=== PATIENT | female | born 1950 | race Caucasian/White ===

== ENCOUNTER → 2017-03-18 | Outpatient (CLI) | payer MEDICARE, OTHER | LOC: MW.CHFP 07:40 | PROVIDERS: ATTEND Emergency Medicine | DX: E03.9 Hypothyroidism, unspecified (principal) | CPT/HCPCS: 36415; 84443 ==

== ENCOUNTER 2019-05-26 12:00 | Emergency (ER) | payer MEDICARE, OTHER ==
--- NOTE | 2019-05-26 12:07 | EDM.PDOC ---
ED HPI GENERAL MEDICAL PROBLEM - General Stated Complaint: SENT FROM CLINIC Time Seen by Provider: 05/26/19 12:01 - History of Present Illness INITIAL COMMENTS - FREE TEXT/NARRATIVE: HISTORY AND PHYSICAL: History of present illness: Patient is a 68-year-old white female presents status post fall when she tripped over a defective Mireya mowing the lawn she injured her left shoulder and did strike her head there was no loss consciousness patient is on aspirin daily she denies nausea vomiting visual disturbance denies any chest pain dizziness or other complaints. Patient's tetanus status is up-to-date Review of systems: As per history of present illness and below otherwise all systems reviewed and negative. Past medical history: As per history of present illness and as reviewed below otherwise noncontributory. Surgical history: As per history of present illness and as reviewed below otherwise noncontributory. Social history: No reported history of drug or alcohol abuse. Family history: As per history of present illness and as reviewed below otherwise noncontributory. Physical exam: HEENT: Atraumatic, normocephalic, pupils reactive, negative for conjunctival pallor or scleral icterus, mucous membranes moist, throat clear, neck supple, nontender, trachea midline. Lungs: Clear to auscultation, breath sounds equal bilaterally, chest nontender. Heart: S1S2, regular, negative for clicks, rubs, or JVD. Abdomen: Soft, nondistended, nontender. Negative for masses or hepatosplenomegaly. Negative for costovertebral tenderness. Pelvis: Stable nontender. Genitourinary: Deferred. Rectal: Deferred. Extremities: Patient has abrasion noted to her anterior shoulder on the left there is no crepitation no gross deformity she has slightly limited range of motion secondary to discomfort neurovascular exam is unremarkable Neuro: Awake, alert, oriented. Cranial nerves II through XII unremarkable. Cerebellum unremarkable. Motor and sensory unremarkable throughout. Exam nonfocal. Diagnostics: EKG CT brain x-ray left shoulder Therapeutics: None Impression: #1 observation status post fall #2 head trauma #3 left shoulder injury with abrasion Definitive disposition and diagnosis as appropriate pending reevaluation and review of above. - Related Data Allergies Allergy/AdvReac Type Severity Reaction Status Date / Time cephalexin monohydrate Allergy Hives Verified 05/26/19 12:14 [From Rollerscoot] Home Meds: Home Meds Levothyroxine Sodium [Synthroid] 25 mcg PO ACBREAKFAST 09/03/15 [History] Multivitamin with Minerals [Multiple Vitamin] 1 tab PO DAILY 09/03/15 [History] PARoxetine [Paxil] 20 mg PO DAILY 09/03/15 [History] Aspirin 81 mg PO DAILY 05/26/19 [History] Past Medical History Other Cardiovascular History: Mitral valve prolapse ED ROS GENERAL - Review of Systems Review Of Systems: ROS reveals no pertinent complaints other than HPI. ED EXAM, GENERAL - Physical Exam Exam: See Below (See dictation) Course - Vital Signs Last Recorded V/S: Last Vital Signs Temp 36.7 C 05/26/19 12:01 Pulse 62 05/26/19 12:01 Resp 16 05/26/19 12:01 BP 110/59 L 05/26/19 12:01 Pulse Ox 97 05/26/19 12:01 - Orders/Labs/Meds Orders: Active Orders 24 hr Category Date Time Status EKG 12 Lead [EKG Documentation Completion] [RC] STAT Care 05/26/19 12:15 Active Head wo Cont [CT] Stat Exams 05/26/19 12:15 Taken Departure - Departure Time of Disposition: 13:06 Disposition: Home, Self-Care 01 Condition: Good Clinical Impression: Fall, Head injury, Encounter for medical screening examination, Shoulder injury - Discharge Information Additional Instructions: The following information is given to patients seen in the emergency department who are being discharged to home. This information is to outline your options for follow-up care. We provide all patients seen in our emergency department with a follow-up referral. The need for follow-up, as well as the timing and circumstances, are variable depending upon the specifics of your emergency department visit. If you don't have a primary care physician on staff, we will provide you with a referral. We always advise you to contact your personal physician following an emergency department visit to inform them of the circumstance of the visit and for follow-up with them and/or the need for any referrals to a consulting specialist. The emergency department will also refer you to a specialist when appropriate. This referral assures that you have the opportunity for followup care with a specialist. All of these measure are taken in an effort to provide you with optimal care, which includes your followup. Under all circumstances we always encourage you to contact your private physician who remains a resource for coordinating your care. When calling for followup care, please make the office aware that this follow-up is from your recent emergency room visit. If for any reason you are refused follow-up, please contact the [facility] emergency department at and asked to speak to the emergency department charge nurse. Tylenol as directed sling as directed follow-up primary medical doctor return as needed as discussed - My Orders Last 24 Hours: My Active Orders 05/26/19 12:15 EKG 12 Lead [EKG Documentation Completion] [RC] STAT Head wo Cont [CT] Stat - Assessment/Plan Last 24 Hours: My Active Orders 05/26/19 12:15 EKG 12 Lead [EKG Documentation Completion] [RC] STAT Head wo Cont [CT] Stat
[2019-05-26 12:39] VITALS: BP 110/59
--- NOTE | 2019-05-26 12:59 | CR ---
HISTORY: Fall. Left shoulder pain. COMPARISON: None. FINDINGS: The joint spaces are preserved. No evidence for acute fracture or dislocation. Dictated by Miley Gan MD @ May 26 2019 12:58PM Signed by Dr. Miley Gan @ May 26 2019 12:58PM
--- NOTE | 2019-05-26 13:10 | CT ---
HISTORY: Fall. Headache. COMPARISON: 09/03/2015. TECHNIQUE: Noncontrast axial images were obtained through the brain. FINDINGS: Yousif-white matter differentiation is preserved. No evidence for acute intracranial hemorrhage or infarction. No midline shift or mass effect. Ventricles are nondilated and symmetric. No abnormal intra or extra-axial fluid collection. Visualized paranasal sinuses and mastoid air cells are clear. The bony calvaria are intact. IMPRESSION: No acute intracranial pathology. Please note that all CT scans at this facility use dose modulation, iterative reconstruction, and/or weight-based dosing when appropriate to reduce radiation dose to as low as reasonably achievable. Dictated by Miley Gan MD @ May 26 2019 1:06PM Signed by Dr. Miley Gan @ May 26 2019 1:09PM
== END 2019-05-26 13:35 | disposition home or self-care (01) ==
LOC: MW.ED 12:00
DX: S40.212A Abrasion of left shoulder, initial encounter (principal); S09.90XA Unspecified injury of head, initial encounter; Z88.6 Allergy status to analgesic agent; Z88.1 Allergy status to other antibiotic agents; Z79.899 Other long term (current) drug therapy; Z79.82 Long term (current) use of aspirin; W18.09XA Striking against other object with subsequent fall, initial encounter
CPT/HCPCS: 70450; 70450-26; 73030-26-LT; 73030-LT; 93005; 99284-25

== ENCOUNTER 2020-07-29 10:23 | Emergency (ER) | payer MEDICARE, OTHER ==
[2020-07-29] MEDS ORDERED: Sodium Chloride 0.9% 2.5 ML Syringe FLUSH PRN (10:56)
[2020-07-29] MEDS ORDERED: Sodium Chloride 0.9% 10 ML Syringe FLUSH PRN (10:56)
--- NOTE | 2020-07-29 11:00 | EDM.PDOC ---
ED HPI GENERAL MEDICAL PROBLEM - General Chief Complaint: Cardiovascular Problem Stated Complaint: FAINT DIZZY SHAKY Time Seen by Provider: 07/29/20 10:25 - History of Present Illness INITIAL COMMENTS - FREE TEXT/NARRATIVE: History of present illness: Patient presents with generalized weakness tremulousness near syncope cough in the morning since . She denies any vomiting but she has had some nausea no diarrhea there is not been any fever or chills no sore throat runny nose she coughs mostly in the morning when she wakes up in the cough makes her nauseous she denies any chest pain or shortness of breath no leg pain or leg swelling no rashes no dysuria nothing makes it better or worse Review of systems: As per history of present illness and below otherwise all systems reviewed and negative. Past medical history: As per history of present illness and as reviewed below otherwise noncontributory. Surgical history: As per history of present illness and as reviewed below otherwise noncontributory. Social history: No reported history of drug or alcohol abuse. Family history: As per history of present illness and as reviewed below otherwise noncontributory. Physical exam: HEENT: Atraumatic, normocephalic, pupils reactive, negative for conjunctival pallor or scleral icterus, mucous membranes moist, throat clear, neck supple, nontender, trachea midline. Lungs: Clear to auscultation, breath sounds equal bilaterally, chest nontender. Heart: S1S2, regular, negative for clicks, rubs, or JVD. Abdomen: Soft, nondistended, nontender. Negative for masses or hepatosplenomegaly. Negative for costovertebral tenderness. Pelvis: Stable nontender. Genitourinary: Deferred. Rectal: Deferred. Extremities: Atraumatic, negative for cords or calf pain. Neurovascular unremarkable. Neuro: Awake, alert, oriented. Cranial nerves II through XII unremarkable. Cerebellum unremarkable. Motor and sensory unremarkable throughout. Exam nonfocal. Diagnostics: [] Therapeutics: [] Impression: Near syncope generalized weakness cough [] Plan: Syncope work-up COVID testing reassess [] Definitive disposition and diagnosis as appropriate pending reevaluation and review of above. - Related Data Allergies Allergy/AdvReac Type Severity Reaction Status Date / Time cephalexin monohydrate Allergy Hives Verified 07/29/20 10:36 [From Keflex] Home Meds: Home Meds Levothyroxine Sodium [Synthroid] 25 mcg PO ACBREAKFAST 09/03/15 [History] Multivitamin with Minerals [Multiple Vitamin] 1 tab PO DAILY 09/03/15 [History] PARoxetine [Paxil] 20 mg PO DAILY 09/03/15 [History] Aspirin 81 mg PO DAILY 05/26/19 [History] Calcium Carbonate/Vitamin D3 [Calcium 250+D] 1 each PO DAILY 07/29/20 [History] Midodrine mg PO ASDIRECTED 07/29/20 [History] Past Medical History Cardiovascular History: Reports: Hypertension Other Cardiovascular History: Mitral valve prolapse Musculoskeletal History: Reports: Other (See Below) Other Musculoskeletal History: TMJ Psychiatric History: Reports: Depression Endocrine/Metabolic History: Reports: Hyperthyroidism - Infectious Disease History Infectious Disease History: Reports: Chicken Pox, Measles, Mumps - Past Surgical History HEENT Surgical History: Reports: Cataract Surgery, Eye Surgery, LASIK Female Surgical History: Reports: Breast Biopsy, Hysterectomy Social & Family History - Family History Family Medical History: Noncontributory - Tobacco Use Smoking Status *Q: Never Smoker - Caffeine Use Caffeine Use: Reports: Coffee, Soda - Recreational Drug Use Recreational Drug Use: No ED ROS GENERAL - Review of Systems Review Of Systems: See Below ED EXAM, GENERAL - Physical Exam Exam: See Below EKG INTERPRETATION EKG Interpretation Comments: EKG is normal sinus rhythm rate of 76 bpm right axis normal intervals no specific ischemia there are some nonspecific ST-T changes read and interpreted by me Course - Vital Signs Text/Narrative:: Patient's lab work is fairly unremarkable with the exception that she is positive for COVID a one-view portable chest was obtained as read interpreted by me there is no acute cardiopulmonary pathology evident. Her vital signs are stable she will be discharged home with instructions to self isolate for 2 weeks. Return to the ED for respiratory distress Last Recorded V/S: Last Vital Signs Temp 37.9 C 07/29/20 10:37 Pulse 74 07/29/20 10:37 Resp 18 07/29/20 10:37 BP 104/46 L 07/29/20 10:37 Pulse Ox 98 07/29/20 10:37 - Orders/Labs/Meds Orders: Active Orders 24 hr Category Date Time Status EKG Documentation Completion [RC] STAT Care 07/29/20 10:56 Active CORONAVIRUS COVID-19 PCR PHL Stat Lab 07/29/20 11:28 Received Sodium Chloride 0.9% [Saline Flush] Med 07/29/20 10:56 Active 10 ml FLUSH ASDIRECTED PRN Sodium Chloride 0.9% [Saline Flush] Med 07/29/20 10:56 Active 2.5 ml FLUSH ASDIRECTED PRN Saline Lock Insert [OM.PC] Stat Oth 07/29/20 10:56 Ordered Medication Orders Sodium Chloride (Saline Flush) 10 ml FLUSH ASDIRECTED PRN PRN Reason: Keep Vein Open Sodium Chloride (Saline Flush) 2.5 ml FLUSH ASDIRECTED PRN PRN Reason: Keep Vein Open Labs: Laboratory Tests 07/29/20 07/29/20 07/29/20 Range/Units 11:22 11:22 11:28 WBC 3.17 L (4.0-11.0) K/uL RBC 4.30 (4.30-5.90) M/uL Hgb 12.9 (12.0-16.0) g/dL Hct 40.3 (36.0-46.0) % MCV 93.7 (80.0-98.0) fL MCH 30.0 (27.0-32.0) pg MCHC 32.0 (31.0-37.0) g/dL RDW Std Deviation 46.2 (28.0-62.0) fl RDW Coeff of Desiree 13 (11.0-15.0) % Plt Count 160 (150-400) K/uL MPV 9.60 (7.40-12.00) fL Neut % (Auto) 58.7 (48.0-80.0) % Lymph % (Auto) 31.9 (16.0-40.0) % [place] % (Auto) 8.8 (0.0-15.0) % Eos % (Auto) 0.3 (0.0-7.0) % Baso % (Auto) 0.3 (0.0-1.5) % Neut # (Auto) 1.9 (1.4-5.7) K/uL Lymph # (Auto) 1.0 (0.6-2.4) K/uL [place] # (Auto) 0.3 (0.0-0.8) K/uL Eos # (Auto) 0.0 (0.0-0.7) K/uL Baso # (Auto) 0.0 (0.0-0.1) K/uL Nucleated RBC % 0.0 /100WBC Nucleated RBCs # 0 K/uL Sodium 139 (136-145) mmol/L Potassium 3.7 (3.5-5.1) mmol/L Chloride 102 (98-107) mmol/L Carbon Dioxide 30.6 (21.0-32.0) mmol/L BUN 19 H (7.0-18.0) mg/dL Creatinine 1.1 H (0.6-1.0) mg/dL Est Cr Clr Drug Dosing 42.86 mL/min Estimated GFR (MDRD) 49.2 ml/min Glucose 93 (74-106) mg/dL Calcium 8.9 (8.5-10.1) mg/dL Total Bilirubin 0.2 (0.2-1.0) mg/dL AST 43 H (15-37) IU/L ALT 39 (14-63) IU/L Alkaline Phosphatase 56 (46-116) U/L Troponin I < 0.050 (0.000-0.056) ng/mL Total Protein 7.8 (6.4-8.2) g/dL Albumin 3.8 (3.4-5.0) g/dL Globulin 4.0 (2.6-4.0) g/dL Albumin/Globulin Ratio 0.9 (0.9-1.6) Urine Color Urine Appearance Urine pH (5.0-8.0) Ur Specific [place] (1.001-1.035) Urine Protein (NEGATIVE) mg/dL Urine Glucose (UA) (NEGATIVE) mg/dL Urine Ketones (NEGATIVE) mg/dL Urine Occult Blood (NEGATIVE) Urine Nitrite (NEGATIVE) Urine Bilirubin (NEGATIVE) Urine Urobilinogen (<2.0) EU/dL Ur Leukocyte Esterase (NEGATIVE) Urine RBC (0-2/HPF) Urine WBC (0-5/HPF) Ur Epithelial Cells (NONE-FEW) Urine Bacteria (NEGATIVE) SARS CoV-2 RNA Rapid REID POSITIVE H (NEGATIVE) 07/29/20 Range/Units 12:37 WBC (4.0-11.0) K/uL RBC (4.30-5.90) M/uL Hgb (12.0-16.0) g/dL Hct (36.0-46.0) % MCV (80.0-98.0) fL MCH (27.0-32.0) pg MCHC (31.0-37.0) g/dL RDW Std Deviation (28.0-62.0) fl RDW Coeff of Desiree (11.0-15.0) % Plt Count (150-400) K/uL MPV (7.40-12.00) fL Neut % (Auto) (48.0-80.0) % Lymph % (Auto) (16.0-40.0) % [place] % (Auto) (0.0-15.0) % Eos % (Auto) (0.0-7.0) % Baso % (Auto) (0.0-1.5) % Neut # (Auto) (1.4-5.7) K/uL Lymph # (Auto) (0.6-2.4) K/uL [place] # (Auto) (0.0-0.8) K/uL Eos # (Auto) (0.0-0.7) K/uL Baso # (Auto) (0.0-0.1) K/uL Nucleated RBC % /100WBC Nucleated RBCs # K/uL Sodium (136-145) mmol/L Potassium (3.5-5.1) mmol/L Chloride (98-107) mmol/L Carbon Dioxide (21.0-32.0) mmol/L BUN (7.0-18.0) mg/dL Creatinine (0.6-1.0) mg/dL Est Cr Clr Drug Dosing mL/min Estimated GFR (MDRD) ml/min Glucose (74-106) mg/dL Calcium (8.5-10.1) mg/dL Total Bilirubin (0.2-1.0) mg/dL AST (15-37) IU/L ALT (14-63) IU/L Alkaline Phosphatase (46-116) U/L Troponin I (0.000-0.056) ng/mL Total Protein (6.4-8.2) g/dL Albumin (3.4-5.0) g/dL Globulin (2.6-4.0) g/dL Albumin/Globulin Ratio (0.9-1.6) Urine Color YELLOW Urine Appearance CLEAR Urine pH 6.0 (5.0-8.0) Ur Specific [place] 1.025 (1.001-1.035) Urine Protein TRACE H (NEGATIVE) mg/dL Urine Glucose (UA) NEGATIVE (NEGATIVE) mg/dL Urine Ketones NEGATIVE (NEGATIVE) mg/dL Urine Occult Blood NEGATIVE (NEGATIVE) Urine Nitrite NEGATIVE (NEGATIVE) Urine Bilirubin NEGATIVE (NEGATIVE) Urine Urobilinogen 0.2 (<2.0) EU/dL Ur Leukocyte Esterase NEGATIVE (NEGATIVE) Urine RBC 0-1 (0-2/HPF) Urine WBC 0-2 (0-5/HPF) Ur Epithelial Cells FEW (NONE-FEW) Urine Bacteria FEW (NEGATIVE) SARS CoV-2 RNA Rapid REID (NEGATIVE) Meds: Medications Generic Name Dose Route Start Last Admin Trade Name Freq PRN Reason Stop Dose Admin Sodium Chloride 10 ml 07/29/20 10:56 Saline Flush FLUSH ASDIRECTED PRN Keep Vein Open Sodium Chloride 2.5 ml 07/29/20 10:56 Saline Flush FLUSH ASDIRECTED PRN Keep Vein Open Departure - Departure Time of Disposition: 12:55 Disposition: Home, Self-Care 01 Condition: Good Clinical Impression: COVID-19 Instructions: COVID-19 Frequently Asked Questions, Prevent the Spread of COVID- 19 if You Are Sick - [facility] Referrals: Vj Julian MD [Primary Care Provider] - Forms: ED Department Discharge Additional Instructions: The following information is given to patients seen in the emergency department who are being discharged to home. This information is to outline your options for follow-up care. We provide all patients seen in our emergency department with a follow-up referral. The need for follow-up, as well as the timing and circumstances, are variable depending upon the specifics of your emergency department visit. If you don't have a primary care physician on staff, we will provide you with a referral. We always advise you to contact your personal physician following an emergency department visit to inform them of the circumstance of the visit and for follow-up with them and/or the need for any referrals to a consulting specialist. The emergency department will also refer you to a specialist when appropriate. This referral assures that you have the opportunity for follow-up care with a specialist. All of these measure are taken in an effort to provide you with optimal care, which includes your follow-up. Under all circumstances we always encourage you to contact your private physician who remains a resource for coordinating your care. When calling for follow-up care, please make the office aware that this follow-up is from your recent emergency room visit. If for any reason you are refused follow-up, please contact the [facility] Emergency Department at and asked to speak to the emergency department charge nurse. Sepsis Event Note (ED) - Evaluation Sepsis Screening Result: No Definite Risk - Focused Exam Vital Signs: Vital Signs Temp Pulse Resp BP Pulse Ox 07/29/20 10:37 37.9 C 74 18 104/46 L 98 - My Orders Last 24 Hours: My Active Orders 07/29/20 10:56 EKG Documentation Completion [RC] STAT Sodium Chloride 0.9% [Saline Flush] 10 ml FLUSH ASDIRECTED PRN Sodium Chloride 0.9% [Saline Flush] 2.5 ml FLUSH ASDIRECTED PRN Saline Lock Insert [OM.PC] Stat 07/29/20 11:28 CORONAVIRUS COVID-19 PCR PHL Stat - Assessment/Plan Last 24 Hours: My Active Orders 07/29/20 10:56 EKG Documentation Completion [RC] STAT Sodium Chloride 0.9% [Saline Flush] 10 ml FLUSH ASDIRECTED PRN Sodium Chloride 0.9% [Saline Flush] 2.5 ml FLUSH ASDIRECTED PRN Saline Lock Insert [OM.PC] Stat 07/29/20 11:28 CORONAVIRUS COVID-19 PCR PHL Stat
--- NOTE | 2020-07-29 11:36 | CR ---
Chest: Portable view of the chest was obtained. Comparison: No prior chest imaging is available. Heart size and mediastinum are within normal limits for portable technique. Lungs are clear with no acute parenchymal change. Scoliosis is noted within the spine. No acute osseous finding is appreciated. Impression: 1. Scoliosis. 2. Nothing acute is identified on portable chest x-ray. Diagnostic code #2 This report was dictated in MDT
[2020-07-29 12:06] LABS: BLOOD UREA NITROGEN,BUN 19 mg/dL (7.0-18.0); CARBON DIOXIDE,CO2 30.6 mmol/L (21.0-32.0); CHLORIDE,CL 102 mmol/L (98-107); GLUCOSE RANDOM 93 mg/dL (74-106); POTASSIUM,K 3.7 mmol/L (3.5-5.1); SODIUM,NA 139 mmol/L (136-145)
[2020-07-29 13:09] VITALS: BP 103/48; PULSE 72
== END 2020-07-29 13:07 | disposition home or self-care (01) ==
LOC: MW.ED 10:23
DX: U07.1 COVID-19 (principal); R55 Syncope and collapse; I10 Essential (primary) hypertension; F32.9 Major depressive disorder, single episode, unspecified; Z88.1 Allergy status to other antibiotic agents; Z79.82 Long term (current) use of aspirin; Z79.899 Other long term (current) drug therapy; Z90.710 Acquired absence of both cervix and uterus
CPT/HCPCS: 36415; 71045; 80053; 81001; 84484; 85025; 93005; 99285; U0002; 99283

== ENCOUNTER 2020-08-02 11:54 | Inpatient (IN) | payer MEDICARE, OTHER ==
[2020-08-02] MEDS ORDERED: Ondansetron 4 MG/2 ML SDV ONE (14:09)
[2020-08-02] MEDS ORDERED: Ketorolac 30 MG/ML SDV ONE (14:09)
--- NOTE | 2020-08-02 14:40 | EDM.PDOC ---
ED HPI GENERAL MEDICAL PROBLEM - General Chief Complaint: General Stated Complaint: PASSING OUT COVID Time Seen by Provider: 08/02/20 12:26 Source of Information: Reports: Patient History Limitations: Reports: No Limitations - History of Present Illness INITIAL COMMENTS - FREE TEXT/NARRATIVE: HISTORY AND PHYSICAL: History of present illness: Patient is a 69-year-old female who was diagnosed with COVID-19 on 07/29/2020. At that time she was having respiratory symptoms and fevers. Since being discharged home she says she feels increasingly weak, generally unwell, cough and chest pain. Over the past 24 hours she has had 3 separate syncopal episodes where he feels like she is very weak and has to let herself to the ground and has passed out. She has not been able to eat or drink much as she has had nausea, diarrhea and decreased appetite. Patient denies any headache, change in vision, abdominal pain, vomiting, constipation or dysuria. Has not noted any blood in urine or stool. Patient has been eating and drinking appropriately. Review of systems: As per history of present illness and below otherwise all systems reviewed and negative. Past medical history: As per history of present illness and as reviewed below otherwise noncontributory. Surgical history: As per history of present illness and as reviewed below otherwise noncontributory. Social history: See social history for further information Family history: As per history of present illness and as reviewed below otherwise noncontributory. Physical exam: General: Well developed and well nourished 69-year-old female. Alert and orientated x 3. Nontoxic in appearance and in no acute distress. Vital signs are stable and have been reviewed by me. Nursing notes were reviewed. HEENT: Atraumatic, normocephalic, pupils equal and reactive bilaterally, negative for conjunctival pallor or scleral icterus, mucous membranes dry, TMs normal bilaterally, throat clear, neck supple, nontender, trachea midline. No drooling or trismus noted. No meningeal signs. No hot potato voice noted. Lungs: Clear to auscultation, breath sounds equal bilaterally, chest nontender. Normal work of breathing, no accessory muscles used. Heart: S1S2, regular rate and rhythm without overt murmur Abdomen: Soft, nondistended, nontender. Negative for masses or hepatosplenomegaly. Negative for costovertebral tenderness. Skin: Intact, warm, dry. No lesions or rashes noted. Hematologic: No petechiae or purpra. Mucosa appropriate color and normal nail bed color and refill. Extremities: Atraumatic, moves all extremities per self without difficulty or deficits, negative for cords or calf pain. Neurovascular unremarkable. Neuro: Awake, alert, oriented. Cranial nerves II through XII unremarkable. Cerebellum unremarkable. Motor and sensory unremarkable throughout. Exam nonfocal. Psychiatric: Mood and affect are appropriate. Normal thought process. Answering questions appropriately. Notes: Chest x-ray shows probable viral bronchitis with possible early area of pneumonia within the right base. EKG shows a sinus rhythm with a rate of 80. Patient does have a slightly elevated d-dimer. Due to the patient's syncopal events, positive COVID history and her generalized weakness I do feel she warrants an observation admission. Her vital signs have been stable and oxygen saturation has been above 95% while on room air. She has not required any oxygen therapy while here. Dr. Fuchs was consulted and he is agreeable that this patient can stay for observation. Diagnostics: CBC, CMP, troponin, EKG, d-dimer, chest x-ray Therapeutics: IV fluid, Zofran, Toradol Impression: Syncope COVID-19 Plan: Observation admission Definitive disposition and diagnosis as appropriate pending reevaluation and review of above. Chest Pain Score (Numeric/FACES): 5 - Related Data Allergies Allergy/AdvReac Type Severity Reaction Status Date / Time cephalexin monohydrate Allergy Hives Verified 07/29/20 10:36 [From [employer]] Home Meds: Home Meds Levothyroxine Sodium [Synthroid] 25 mcg PO ACBREAKFAST 09/03/15 [History] Multivitamin with Minerals [Multiple Vitamin] 1 tab PO DAILY 09/03/15 [History] PARoxetine [Paxil] 20 mg PO DAILY 09/03/15 [History] Aspirin 81 mg PO DAILY 05/26/19 [History] Calcium Carbonate/Vitamin D3 [Calcium 250+D] 1 each PO DAILY 07/29/20 [History] Midodrine mg PO ASDIRECTED 07/29/20 [History] Past Medical History Cardiovascular History: Reports: Hypertension Other Cardiovascular History: Mitral valve prolapse Musculoskeletal History: Reports: Other (See Below) Other Musculoskeletal History: TMJ Psychiatric History: Reports: Depression Endocrine/Metabolic History: Reports: Hyperthyroidism - Infectious Disease History Infectious Disease History: Reports: Chicken Pox, Influenza, Measles, Mumps, Novel Coronavirus - Past Surgical History HEENT Surgical History: Reports: Cataract Surgery, Eye Surgery, LASIK Female Surgical History: Reports: Breast Biopsy, Hysterectomy Social & Family History - Family History Family Medical History: Noncontributory - Tobacco Use Smoking Status *Q: Never Smoker Second Hand Smoke Exposure: No - Caffeine Use Caffeine Use: Reports: None - Recreational Drug Use Recreational Drug Use: No ED ROS GENERAL - Review of Systems Review Of Systems: Comprehensive ROS is negative, except as noted in HPI. ED EXAM, GENERAL - Physical Exam Exam: See Below (See dictation) Course - Vital Signs Last Recorded V/S: Last Vital Signs Temp 96.3 F L 08/02/20 12:20 Pulse 70 08/02/20 16:49 Resp 18 08/02/20 12:20 BP 98/54 L 08/02/20 16:49 Pulse Ox 93 L 08/02/20 16:49 - Orders/Labs/Meds Orders: Active Orders 24 hr Category Date Time Status EKG Documentation Completion [RC] STAT Care 08/02/20 12:33 Active Medication Orders Aspirin (Aspirin) 81 mg PO DAILY [facility] Enoxaparin Sodium (Lovenox) 40 mg SUBCUT DAILY [facility] Last Admin: 08/02/20 19:57 Dose: 40 mg Documented by: RASHIDA Sodium Chloride (Normal Saline) 1,000 mls @ 125 mls/hr IV Q8H [facility] Last Admin: 08/02/20 19:58 Dose: 125 mls/hr Documented by: FLAVIOOMAS Levothyroxine Sodium (Levothyroxine) 25 mcg PO ACBREAKFAST [facility] Non-Formulary Medication (Midodrine) 2.5 mg PO ASDIRECTED [facility] Paroxetine HCl (Paxil) 20 mg PO DAILY [facility] Labs: Laboratory Tests 08/02/20 08/02/20 08/02/20 Range/Units 14:23 14:23 14:23 WBC 3.98 L (4.0-11.0) K/uL RBC 4.42 (4.30-5.90) M/uL Hgb 13.1 (12.0-16.0) g/dL Hct 40.4 (36.0-46.0) % MCV 91.4 (80.0-98.0) fL MCH 29.6 (27.0-32.0) pg MCHC 32.4 (31.0-37.0) g/dL RDW Std Deviation 44.5 (28.0-62.0) fl RDW Coeff of Desiree 13 (11.0-15.0) % Plt Count 176 (150-400) K/uL MPV 9.60 (7.40-12.00) fL Neut % (Auto) 72.8 (48.0-80.0) % Lymph % (Auto) 21.4 (16.0-40.0) % Mower % (Auto) 5.5 (0.0-15.0) % Eos % (Auto) 0.0 (0.0-7.0) % Baso % (Auto) 0.3 (0.0-1.5) % Neut # (Auto) 2.9 (1.4-5.7) K/uL Lymph # (Auto) 0.9 (0.6-2.4) K/uL Mower # (Auto) 0.2 (0.0-0.8) K/uL Eos # (Auto) 0.0 (0.0-0.7) K/uL Baso # (Auto) 0.0 (0.0-0.1) K/uL Nucleated RBC % 0.0 /100WBC Nucleated RBCs # 0 K/uL D-Dimer, Quantitative 0.55 H (0.0-0.50) mg/L FEU Sodium 135 L (136-145) mmol/L Potassium 3.6 (3.5-5.1) mmol/L Chloride 99 (98-107) mmol/L Carbon Dioxide 30.8 (21.0-32.0) mmol/L BUN 18 (7.0-18.0) mg/dL Creatinine 1.0 (0.6-1.0) mg/dL Est Cr Clr Drug Dosing 47.52 mL/min Estimated GFR (MDRD) 55.0 ml/min Glucose 113 H (74-106) mg/dL Calcium 8.4 L (8.5-10.1) mg/dL Total Bilirubin 0.2 (0.2-1.0) mg/dL AST 86 H (15-37) IU/L ALT 76 H (14-63) IU/L Alkaline Phosphatase 58 (46-116) U/L Troponin I < 0.050 (0.000-0.056) ng/mL Total Protein 7.8 (6.4-8.2) g/dL Albumin 3.6 (3.4-5.0) g/dL Globulin 4.2 H (2.6-4.0) g/dL Albumin/Globulin Ratio 0.9 (0.9-1.6) SARS-CoV-2 RNA (REID) (NEGATIVE) 08/02/20 Range/Units 15:00 WBC (4.0-11.0) K/uL RBC (4.30-5.90) M/uL Hgb (12.0-16.0) g/dL Hct (36.0-46.0) % MCV (80.0-98.0) fL MCH (27.0-32.0) pg MCHC (31.0-37.0) g/dL RDW Std Deviation (28.0-62.0) fl RDW Coeff of Desiree (11.0-15.0) % Plt Count (150-400) K/uL MPV (7.40-12.00) fL Neut % (Auto) (48.0-80.0) % Lymph % (Auto) (16.0-40.0) % Mower % (Auto) (0.0-15.0) % Eos % (Auto) (0.0-7.0) % Baso % (Auto) (0.0-1.5) % Neut # (Auto) (1.4-5.7) K/uL Lymph # (Auto) (0.6-2.4) K/uL Mower # (Auto) (0.0-0.8) K/uL Eos # (Auto) (0.0-0.7) K/uL Baso # (Auto) (0.0-0.1) K/uL Nucleated RBC % /100WBC Nucleated RBCs # K/uL D-Dimer, Quantitative (0.0-0.50) mg/L FEU Sodium (136-145) mmol/L Potassium (3.5-5.1) mmol/L Chloride (98-107) mmol/L Carbon Dioxide (21.0-32.0) mmol/L BUN (7.0-18.0) mg/dL Creatinine (0.6-1.0) mg/dL Est Cr Clr Drug Dosing mL/min Estimated GFR (MDRD) ml/min Glucose (74-106) mg/dL Calcium (8.5-10.1) mg/dL Total Bilirubin (0.2-1.0) mg/dL AST (15-37) IU/L ALT (14-63) IU/L Alkaline Phosphatase (46-116) U/L Troponin I (0.000-0.056) ng/mL Total Protein (6.4-8.2) g/dL Albumin (3.4-5.0) g/dL Globulin (2.6-4.0) g/dL Albumin/Globulin Ratio (0.9-1.6) SARS-CoV-2 RNA (REID) POSITIVE H (NEGATIVE) Meds: Medications Generic Name Dose Route Start Last Admin Trade Name Freq PRN Reason Stop Dose Admin Aspirin 81 mg 08/03/20 09:00 Aspirin PO DAILY [facility] Enoxaparin Sodium 40 mg 08/02/20 19:15 08/02/20 19:57 Lovenox SUBCUT 40 mg DAILY [facility] Administration Sodium Chloride 1,000 mls @ 125 mls/hr 08/02/20 19:15 08/02/20 19:58 Normal Saline IV 125 mls/hr Q8H [facility] Administration Levothyroxine Sodium 25 mcg 08/03/20 07:30 Levothyroxine PO ACBREAKFAST [facility] Non-Formulary Medication 2.5 mg 08/02/20 18:45 Midodrine PO ASDIRECTED [facility] Paroxetine HCl 20 mg 08/03/20 09:00 Paxil PO DAILY [facility] Discontinued Medications Generic Name Dose Route Start Last Admin Trade Name Freq PRN Reason Stop Dose Admin Enoxaparin Sodium 40 mg 08/02/20 16:00 Lovenox SUBCUT DAILY [facility] Sodium Chloride 1,000 mls @ 125 mls/hr 08/02/20 15:30 08/02/20 14:29 Normal Saline IV 125 mls/hr Q8H [facility] Administration Ketorolac Tromethamine Confirm 08/02/20 14:09 08/02/20 17:14 Toradol Administered 08/02/20 14:10 Not Given Dose 30 mg .ROUTE .STK-MED ONE Ketorolac Tromethamine 30 mg 08/02/20 17:13 08/02/20 14:23 Toradol IVPUSH 08/02/20 17:14 30 mg ONETIME ONE Administration Ondansetron HCl Confirm 08/02/20 14:09 08/02/20 17:14 Zofran Administered 08/02/20 14:10 Not Given Dose 4 mg .ROUTE .STK-MED ONE Ondansetron HCl 4 mg 08/02/20 17:14 08/02/20 17:15 Zofran IVPUSH 08/02/20 17:15 4 mg ONETIME ONE Administration Departure - Departure Time of Disposition: 20:01 Disposition: Refer to Observation Clinical Impression: COVID-19 Syncope Qualifiers: Syncope type: unspecified Qualified Code(s): R55 - Syncope and collapse - Discharge Information Sepsis Event Note (ED) - Evaluation Sepsis Screening Result: No Definite Risk - Focused Exam Vital Signs: Vital Signs Temp Pulse Resp BP Pulse Ox 08/02/20 14:49 78 102/50 L 94 L 08/02/20 12:32 95 08/02/20 12:20 96.3 F L 91 18 112/59 L - My Orders Last 24 Hours: My Active Orders 08/02/20 12:33 EKG Documentation Completion [RC] STAT - Assessment/Plan Last 24 Hours: My Active Orders 08/02/20 12:33 EKG Documentation Completion [RC] STAT
--- NOTE | 2020-08-02 15:02 | PCM.HP.2 ---
H&P History of Present Illness - General Date of Service: 08/02/20 - History of Present Illness Initial Comments - Free Text/Narative: 69 yo female who tested positive for COVID four days ago. She had symptoms of nausea, vomiting, diarhea and fevers for two days prior to that. She reports she has not been able to keep anything down. She has passed out three times this week. She denies any chest pain, cough or shortness of breath. She does take midodrine for low blood pressures. Chest Pain Score (Numeric/FACES): 5 - Related Data Allergies/Adverse Reactions: Allergies Allergy/AdvReac Type Severity Reaction Status Date / Time cephalexin monohydrate Allergy Hives Verified 07/29/20 10:36 [From [employer]] Home Medications: Home Meds Levothyroxine Sodium [Synthroid] 25 mcg PO ACBREAKFAST 09/03/15 [History] Multivitamin with Minerals [Multiple Vitamin] 1 tab PO DAILY 09/03/15 [History] PARoxetine [Paxil] 20 mg PO DAILY 09/03/15 [History] Aspirin 81 mg PO DAILY 05/26/19 [History] Calcium Carbonate/Vitamin D3 [Calcium 250+D] 1 each PO DAILY 07/29/20 [History] Midodrine mg PO ASDIRECTED 07/29/20 [History] Past Medical History Cardiovascular History: Reports: Hypertension Other Cardiovascular History: Mitral valve prolapse Musculoskeletal History: Reports: Other (See Below) Other Musculoskeletal History: TMJ Psychiatric History: Reports: Depression Endocrine/Metabolic History: Reports: Hyperthyroidism - Infectious Disease History Infectious Disease History: Reports: Chicken Pox, Influenza, Measles, Mumps, Novel Coronavirus - Past Surgical History HEENT Surgical History: Reports: Cataract Surgery, Eye Surgery, LASIK Female Surgical History: Reports: Breast Biopsy, Hysterectomy Social & Family History - Family History Family Medical History: Noncontributory - Tobacco Use Smoking Status *Q: Never Smoker Second Hand Smoke Exposure: No - Caffeine Use Caffeine Use: Reports: None - Recreational Drug Use Recreational Drug Use: No H&P Review of Systems - Review of Systems: Review Of Systems: Comprehensive ROS is negative, except as noted in HPI. Exam - Exam Exam: See Below - Vital Signs Vital Signs: Last Vital Signs Temp 35.7 C L 08/02/20 12:20 Pulse 91 08/02/20 12:20 Resp 18 08/02/20 12:20 BP 112/59 L 08/02/20 12:20 Pulse Ox 95 08/02/20 12:32 Weight: 56.699 kg - Exam General: Alert, Oriented HEENT: Mucosa Moist & [place] Lungs: Clear to Auscultation, Normal Respiratory Effort Cardiovascular: Regular Rate, Regular Rhythm GI/Abdominal Exam: Normal Bowel Sounds, Soft, Non-Tender Extremities: Non-Tender, No Pedal Edema Skin: Warm, Dry, Intact Sepsis Event Note - Evaluation Sepsis Screening Result: No Definite Risk - Focused Exam Vital Signs: Vital Signs Temp Pulse Resp BP Pulse Ox 08/02/20 12:32 95 08/02/20 12:20 35.7 C L 91 18 112/59 L Problem List Initiated/Reviewed/Updated: Yes Orders Last 24hrs: Active Orders 24 hr Category Date Time Status EKG Documentation Completion [RC] STAT Care 08/02/20 12:33 Active Chest 1V Frontal [CR] Stat Exams 08/02/20 12:33 Ordered CBC WITH AUTO DIFF [HEME] Stat Lab 08/02/20 12:32 Ordered COMPREHENSIVE METABOLIC PN,CMP [CHEM] Stat Lab 08/02/20 12:33 Ordered DD [D-DIMER QUANTITATIVE] [COAG] Stat Lab 08/02/20 12:59 Ordered TROPONIN I [CHEM] Stat Lab 08/02/20 12:33 Ordered Assessment/Plan Comment:: 69 yo female admitted for dehydration due to COVID with GI symptoms. Patient is not hypoxic. We will treat supportively with IV fluids and antiemetics.
[2020-08-02] MEDS ORDERED: Sodium Chloride 0.9% 1,000 ML IV SCH (15:30)
[2020-08-02] MEDS ORDERED: Enoxaparin 40 MG/0.4 ML Syringe SUBCUT SCH (16:00)
--- NOTE | 2020-08-02 16:20 | CR ---
Chest: Portable view of the chest was obtained. Comparison: No prior study available at this time. Lung markings are increased most likely due to viral bronchitis. Slight parenchymal density within the right lung base possibly due to early alveolar pneumonia. Lungs otherwise are clear. Heart size and mediastinum are normal. Bony structures are unremarkable. Impression: 1. Probable viral bronchitis with possible early area of pneumonia within the right base. Diagnostic code #3 Study was dictated in MDT MTDD
[2020-08-02 16:26] LABS: BLOOD UREA NITROGEN,BUN 18 mg/dL (7.0-18.0); CARBON DIOXIDE,CO2 30.8 mmol/L (21.0-32.0); CHLORIDE,CL 99 mmol/L (98-107); GLUCOSE RANDOM 113 mg/dL (74-106); POTASSIUM,K 3.6 mmol/L (3.5-5.1); SODIUM,NA 135 mmol/L (136-145)
[2020-08-02] MEDS ORDERED: Ketorolac 30 MG/ML SDV IVPUSH ONE (17:13)
[2020-08-02] MEDS ORDERED: Ondansetron 4 MG/2 ML SDV IVPUSH ONE (17:14)
[2020-08-02] MEDS: Enoxaparin 40 MG/0.4 ML Syringe SUBCUT SCH (19:57)
[2020-08-02] MEDS: Sodium Chloride 0.9% 1,000 ML IV SCH (19:58)
[2020-08-02] MEDS ORDERED: Sodium Chloride 0.9% 500 ML IV SCH (21:30)
[2020-08-02] MEDS: Acetaminophen 325 MG Tab PO PRN (21:46)
[2020-08-03] MEDS ORDERED: Sodium Chloride 0.9% 500 ML IV SCH (00:15)
[2020-08-03] MEDS: Sodium Chloride 0.9% 1,000 ML IV SCH ×2 (04:22→12:04)
[2020-08-03 06:39] LABS: BLOOD UREA NITROGEN,BUN 16 mg/dL (7.0-18.0); CARBON DIOXIDE,CO2 26.5 mmol/L (21.0-32.0); CHLORIDE,CL 107 mmol/L (98-107); GLUCOSE RANDOM 91 mg/dL (74-106); POTASSIUM,K 4.4 mmol/L (3.5-5.1); SODIUM,NA 140 mmol/L (136-145)
[2020-08-03] MEDS ORDERED: Midodrine 5 MG Tab PO SCH (09:00)
[2020-08-03] MEDS: Aspirin 81 MG Tab.Chew PO SCH (09:02)
[2020-08-03] MEDS: PARoxetine 20 MG Tab PO SCH (09:03)
[2020-08-03] MEDS: Levothyroxine 112 MCG Tab PO SCH (09:03)
[2020-08-03] MEDS: Acetaminophen 325 MG Tab PO PRN ×3 (09:04→20:59)
[2020-08-03] MEDS: Enoxaparin 40 MG/0.4 ML Syringe SUBCUT SCH (09:05)
[2020-08-03] MEDS: Midodrine 5 MG Tab PO SCH (09:11)
--- NOTE | 2020-08-03 15:38 | PCM.PN ---
- General Info Date of Service: 08/03/20 - Review of Systems Systems Review Comment:: feeling better, nausea has improved - Patient Data Vitals - Most Recent: Last Vital Signs Temp 37.3 C 08/03/20 11:57 Pulse 63 08/03/20 11:57 Resp 16 08/03/20 11:57 BP 101/53 L 08/03/20 11:57 Pulse Ox 92 L 08/03/20 11:57 Weight - Most Recent: 56.699 kg I&O - Last 24 Hours: Intake & Output 08/03/20 08/03/20 08/03/20 06:59 14:59 22:59 Intake Total 2366 Output Total 650 Balance 1716 Lab Results Last 24 Hours: Laboratory Results - last 24 hr 08/02/20 08/02/20 08/02/20 Range/Units 14:23 14:23 14:23 WBC 3.98 L (4.0-11.0) K/uL RBC 4.42 (4.30-5.90) M/uL Hgb 13.1 (12.0-16.0) g/dL Hct 40.4 (36.0-46.0) % MCV 91.4 (80.0-98.0) fL MCH 29.6 (27.0-32.0) pg MCHC 32.4 (31.0-37.0) g/dL RDW Std Deviation 44.5 (28.0-62.0) fl RDW Coeff of Desiree 13 (11.0-15.0) % Plt Count 176 (150-400) K/uL MPV 9.60 (7.40-12.00) fL Neut % (Auto) 72.8 (48.0-80.0) % Lymph % (Auto) 21.4 (16.0-40.0) % Pitt % (Auto) 5.5 (0.0-15.0) % Eos % (Auto) 0.0 (0.0-7.0) % Baso % (Auto) 0.3 (0.0-1.5) % Neut # (Auto) 2.9 (1.4-5.7) K/uL Lymph # (Auto) 0.9 (0.6-2.4) K/uL [place] # (Auto) 0.2 (0.0-0.8) K/uL Eos # (Auto) 0.0 (0.0-0.7) K/uL Baso # (Auto) 0.0 (0.0-0.1) K/uL Nucleated RBC % 0.0 /100WBC Nucleated RBCs # 0 K/uL D-Dimer, Quantitative 0.55 H (0.0-0.50) mg/L FEU Lactate (0.20-2.00) mmol/L Sodium 135 L (136-145) mmol/L Potassium 3.6 (3.5-5.1) mmol/L Chloride 99 (98-107) mmol/L Carbon Dioxide 30.8 (21.0-32.0) mmol/L BUN 18 (7.0-18.0) mg/dL Creatinine 1.0 (0.6-1.0) mg/dL Est Cr Clr Drug Dosing 47.52 mL/min Estimated GFR (MDRD) 55.0 ml/min Glucose 113 H (74-106) mg/dL Calcium 8.4 L (8.5-10.1) mg/dL Total Bilirubin 0.2 (0.2-1.0) mg/dL AST 86 H (15-37) IU/L ALT 76 H (14-63) IU/L Alkaline Phosphatase 58 (46-116) U/L Troponin I < 0.050 (0.000-0.056) ng/mL Total Protein 7.8 (6.4-8.2) g/dL Albumin 3.6 (3.4-5.0) g/dL Globulin 4.2 H (2.6-4.0) g/dL Albumin/Globulin Ratio 0.9 (0.9-1.6) SARS-CoV-2 RNA (REID) (NEGATIVE) 08/02/20 08/02/20 08/03/20 Range/Units 15:00 21:38 05:38 WBC 3.98 L (4.0-11.0) K/uL RBC 3.70 L (4.30-5.90) M/uL Hgb 11.0 L (12.0-16.0) g/dL Hct 34.4 L (36.0-46.0) % MCV 93.0 (80.0-98.0) fL MCH 29.7 (27.0-32.0) pg MCHC 32.0 (31.0-37.0) g/dL RDW Std Deviation 46.0 (28.0-62.0) fl RDW Coeff of Desiree 14 (11.0-15.0) % Plt Count 172 (150-400) K/uL MPV 10.50 (7.40-12.00) fL Neut % (Auto) 67.0 (48.0-80.0) % Lymph % (Auto) 25.4 (16.0-40.0) % [place] % (Auto) 6.8 (0.0-15.0) % Eos % (Auto) 0.8 (0.0-7.0) % Baso % (Auto) 0.0 (0.0-1.5) % Neut # (Auto) 2.7 (1.4-5.7) K/uL Lymph # (Auto) 1.0 (0.6-2.4) K/uL [place] # (Auto) 0.3 (0.0-0.8) K/uL Eos # (Auto) 0.0 (0.0-0.7) K/uL Baso # (Auto) 0.0 (0.0-0.1) K/uL Nucleated RBC % 0.0 /100WBC Nucleated RBCs # 0 K/uL D-Dimer, Quantitative (0.0-0.50) mg/L FEU Lactate 0.9 (0.20-2.00) mmol/L Sodium (136-145) mmol/L Potassium (3.5-5.1) mmol/L Chloride (98-107) mmol/L Carbon Dioxide (21.0-32.0) mmol/L BUN (7.0-18.0) mg/dL Creatinine (0.6-1.0) mg/dL Est Cr Clr Drug Dosing mL/min Estimated GFR (MDRD) ml/min Glucose (74-106) mg/dL Calcium (8.5-10.1) mg/dL Total Bilirubin (0.2-1.0) mg/dL AST (15-37) IU/L ALT (14-63) IU/L Alkaline Phosphatase (46-116) U/L Troponin I (0.000-0.056) ng/mL Total Protein (6.4-8.2) g/dL Albumin (3.4-5.0) g/dL Globulin (2.6-4.0) g/dL Albumin/Globulin Ratio (0.9-1.6) SARS-CoV-2 RNA (REID) POSITIVE H (NEGATIVE) 08/03/20 Range/Units 05:38 WBC (4.0-11.0) K/uL RBC (4.30-5.90) M/uL Hgb (12.0-16.0) g/dL Hct (36.0-46.0) % MCV (80.0-98.0) fL MCH (27.0-32.0) pg MCHC (31.0-37.0) g/dL RDW Std Deviation (28.0-62.0) fl RDW Coeff of Desiree (11.0-15.0) % Plt Count (150-400) K/uL MPV (7.40-12.00) fL Neut % (Auto) (48.0-80.0) % Lymph % (Auto) (16.0-40.0) % [place] % (Auto) (0.0-15.0) % Eos % (Auto) (0.0-7.0) % Baso % (Auto) (0.0-1.5) % Neut # (Auto) (1.4-5.7) K/uL Lymph # (Auto) (0.6-2.4) K/uL [place] # (Auto) (0.0-0.8) K/uL Eos # (Auto) (0.0-0.7) K/uL Baso # (Auto) (0.0-0.1) K/uL Nucleated RBC % /100WBC Nucleated RBCs # K/uL D-Dimer, Quantitative (0.0-0.50) mg/L FEU Lactate (0.20-2.00) mmol/L Sodium 140 (136-145) mmol/L Potassium 4.4 (3.5-5.1) mmol/L Chloride 107 (98-107) mmol/L Carbon Dioxide 26.5 (21.0-32.0) mmol/L BUN 16 (7.0-18.0) mg/dL Creatinine 0.9 (0.6-1.0) mg/dL Est Cr Clr Drug Dosing 52.80 mL/min Estimated GFR (MDRD) > 60.0 ml/min Glucose 91 (74-106) mg/dL Calcium 7.4 L (8.5-10.1) mg/dL Total Bilirubin 0.1 L (0.2-1.0) mg/dL AST 56 H (15-37) IU/L ALT 54 (14-63) IU/L Alkaline Phosphatase 42 L (46-116) U/L Troponin I (0.000-0.056) ng/mL Total Protein 5.8 L (6.4-8.2) g/dL Albumin 2.6 L (3.4-5.0) g/dL Globulin 3.2 (2.6-4.0) g/dL Albumin/Globulin Ratio 0.8 L (0.9-1.6) SARS-CoV-2 RNA (REID) (NEGATIVE) Med Orders - Current: Current Medications Acetaminophen (Tylenol) 650 mg PO Q4H PRN PRN Reason: Pain Last Admin: 08/03/20 14:40 Dose: 650 mg Documented by: Aspirin (Aspirin) 81 mg PO DAILY [facility] Last Admin: 08/03/20 09:02 Dose: 81 mg Documented by: Enoxaparin Sodium (Lovenox) 40 mg SUBCUT DAILY [facility] Last Admin: 08/03/20 09:05 Dose: 40 mg Documented by: Levothyroxine Sodium (Levothyroxine) 112 mcg PO ACBREAKFAST [facility] Last Admin: 08/03/20 09:03 Dose: 112 mcg Documented by: Ondansetron HCl (Zofran) 4 mg IVPUSH Q4H PRN PRN Reason: Nausea/Vomiting Paroxetine HCl (Paxil) 20 mg PO DAILY [facility] Last Admin: 08/03/20 09:03 Dose: 20 mg Documented by: Midodrine 5 Mg Tab 1 each PO DAILY [facility] Last Admin: 08/03/20 09:11 Dose: 1 each Documented by: Discontinued Medications Enoxaparin Sodium (Lovenox) 40 mg SUBCUT DAILY [facility] Last Admin: 08/02/20 23:30 Dose: Not Given Documented by: Sodium Chloride (Normal Saline) 1,000 mls @ 125 mls/hr IV Q8H [facility] Last Admin: 08/02/20 14:29 Dose: 125 mls/hr Documented by: Sodium Chloride (Normal Saline) 1,000 mls @ 50 mls/hr IV Q8H [facility] Last Admin: 08/03/20 12:04 Dose: 125 mls/hr Documented by: Sodium Chloride (Normal Saline) 500 mls @ 999 mls/hr IV BOLUS [facility] Stop: 08/02/20 22:01 Last Admin: 08/02/20 21:44 Dose: 999 mls/hr Documented by: Sodium Chloride (Normal Saline) 500 mls @ 999 mls/hr IV BOLUS [facility] Stop: 08/03/20 00:46 Last Admin: 08/03/20 00:33 Dose: 999 mls/hr Documented by: Ketorolac Tromethamine (Toradol) Confirm Administered Dose 30 mg .ROUTE .STK-MED ONE Stop: 08/02/20 14:10 Last Admin: 08/02/20 17:14 Dose: Not Given Documented by: Ketorolac Tromethamine (Toradol) 30 mg IVPUSH ONETIME ONE Stop: 08/02/20 17:14 Last Admin: 08/02/20 14:23 Dose: 30 mg Documented by: Midodrine (Midodrine) 5 mg PO TID [facility] Ondansetron HCl (Zofran) Confirm Administered Dose 4 mg .ROUTE .STK-MED ONE Stop: 08/02/20 14:10 Last Admin: 08/02/20 17:14 Dose: Not Given Documented by: Ondansetron HCl (Zofran) 4 mg IVPUSH ONETIME ONE Stop: 08/02/20 17:15 Last Admin: 08/02/20 17:15 Dose: 4 mg Documented by: - Exam General: Alert, Oriented Neck: Supple Lungs: Clear to Auscultation, Normal Respiratory Effort Cardiovascular: Regular Rate, Regular Rhythm GI/Abdominal Exam: Soft, Non-Tender, No Distention Extremities: Non-Tender, No Pedal Edema Skin: Warm, Dry, Intact Neurological: No New Focal Deficit Sepsis Event Note - Evaluation Sepsis Screening Result: No Definite Risk - Focused Exam Vital Signs: Vital Signs Temp Pulse Resp BP Pulse Ox 08/03/20 11:57 37.3 C 63 16 101/53 L 92 L 08/03/20 09:16 76 104/45 L 93 L 08/03/20 08:57 37.3 C 83 14 124/67 92 L 08/03/20 07:40 106/51 L 08/03/20 04:00 36.8 C 65 18 100/50 L 98 - Problem List Review Problem List Initiated/Reviewed/Updated: Yes - My Orders Last 24 Hours: My Active Orders 08/02/20 15:05 Telemetry Monitoring [Cardiac Monitoring] [RC] Q8H 08/02/20 15:19 Oxygen Therapy [RC] PRN Up ad Marilee [RC] ASDIRECTED VTE/DVT Education [RC] DAILY Vital Signs [RC] Q4H Resuscitation Status Routine 08/02/20 15:20 Sequential Compression Device [OM.PC] Per Unit Routine 08/02/20 15:21 Antiembolic Devices [RC] PER UNIT ROUTINE 08/02/20 19:15 Enoxaparin [Lovenox] 40 mg SUBCUT DAILY 08/02/20 21:28 Acetaminophen [TylenoL] 650 mg PO Q4H PRN 08/02/20 21:29 Ondansetron [Zofran] 4 mg IVPUSH Q4H PRN 08/03/20 07:30 Levothyroxine 112 mcg PO ACBREAKFAST 08/03/20 09:00 Aspirin 81 mg PO DAILY PARoxetine [Paxil] 20 mg PO DAILY Patient's Own Medication [Ptom] 1 each PO DAILY 08/04/20 05:11 CBC WITH AUTO DIFF [HEME] AM COMPREHENSIVE METABOLIC PN,CMP [CHEM] AM 08/05/20 05:11 CBC WITH AUTO DIFF [HEME] AM COMPREHENSIVE METABOLIC PN,CMP [CHEM] AM - Plan Plan:: 69 yo female admitted for dehydration due to COVID with GI symptoms. Diarrhea, nausea and vomiting has improved. Patient on subcu lovenox. Will monitor today and if continues to improve likely discharge home tomorrow.
[2020-08-03] MEDS: Ondansetron 4 MG/2 ML SDV IVPUSH PRN (18:43)
[2020-08-04 06:45] LABS: BLOOD UREA NITROGEN,BUN 9 mg/dL (7.0-18.0); CARBON DIOXIDE,CO2 25.8 mmol/L (21.0-32.0); CHLORIDE,CL 104 mmol/L (98-107); GLUCOSE RANDOM 92 mg/dL (74-106); POTASSIUM,K 3.8 mmol/L (3.5-5.1); SODIUM,NA 138 mmol/L (136-145)
[2020-08-04] MEDS: Levothyroxine 112 MCG Tab PO SCH (06:47)
[2020-08-04] MEDS: PARoxetine 20 MG Tab PO SCH (08:35)
[2020-08-04] MEDS: Aspirin 81 MG Tab.Chew PO SCH (08:35)
[2020-08-04] MEDS: Enoxaparin 40 MG/0.4 ML Syringe SUBCUT SCH (08:36)
[2020-08-04] MEDS: Dexamethasone 4 MG Tab PO SCH (10:58)
[2020-08-04] MEDS: Midodrine 5 MG Tab PO SCH (10:59)
[2020-08-04] MEDS ORDERED: REMDESIVIR 200 MG in Sodium Chloride 0.9% 250 ML IV ONE (11:30)
[2020-08-04] MEDS ORDERED: Ibuprofen 200 MG Tab PO PRN (13:17)
[2020-08-04] MEDS ORDERED: Ibuprofen 400 MG Tab ONE (13:34)
[2020-08-04] MEDS ORDERED: Pantoprazole 40 MG Vial ONE (13:34)
--- NOTE | 2020-08-04 13:38 | PCM.PN ---
- General Info Date of Service: 08/04/20 - Review of Systems Systems Review Comment:: reports cough with shortness of breath - Patient Data Vitals - Most Recent: Last Vital Signs Temp 37.6 C 08/04/20 10:57 Pulse 83 08/04/20 10:57 Resp 16 08/04/20 08:33 BP 114/55 L 08/04/20 08:33 Pulse Ox 91 L 08/04/20 10:57 Weight - Most Recent: 56.699 kg I&O - Last 24 Hours: Intake & Output 08/03/20 08/04/20 08/04/20 22:59 06:59 14:59 Intake Total 2800 950 Output Total 850 700 Balance 1950 250 Lab Results Last 24 Hours: Laboratory Results - last 24 hr 08/04/20 08/04/20 08/04/20 Range/Units 05:35 05:35 05:35 WBC 6.06 (4.0-11.0) K/uL RBC 3.84 L (4.30-5.90) M/uL Hgb 11.3 L (12.0-16.0) g/dL Hct 35.3 L (36.0-46.0) % MCV 91.9 (80.0-98.0) fL MCH 29.4 (27.0-32.0) pg MCHC 32.0 (31.0-37.0) g/dL RDW Std Deviation 45.6 (28.0-62.0) fl RDW Coeff of Desiree 14 (11.0-15.0) % Plt Count 216 (150-400) K/uL MPV 10.10 (7.40-12.00) fL Neut % (Auto) 79.4 (48.0-80.0) % Lymph % (Auto) 17.2 (16.0-40.0) % [place] % (Auto) 3.0 (0.0-15.0) % Eos % (Auto) 0.2 (0.0-7.0) % Baso % (Auto) 0.2 (0.0-1.5) % Neut # (Auto) 4.8 (1.4-5.7) K/uL Lymph # (Auto) 1.0 (0.6-2.4) K/uL [place] # (Auto) 0.2 (0.0-0.8) K/uL Eos # (Auto) 0.0 (0.0-0.7) K/uL Baso # (Auto) 0.0 (0.0-0.1) K/uL Nucleated RBC % 0.0 /100WBC Nucleated RBCs # 0 K/uL Sodium 138 (136-145) mmol/L Potassium 3.8 (3.5-5.1) mmol/L Chloride 104 (98-107) mmol/L Carbon Dioxide 25.8 (21.0-32.0) mmol/L BUN 9 (7.0-18.0) mg/dL Creatinine 0.9 (0.6-1.0) mg/dL Est Cr Clr Drug Dosing 52.80 mL/min Estimated GFR (MDRD) > 60.0 ml/min Glucose 92 (74-106) mg/dL Calcium 7.9 L (8.5-10.1) mg/dL Magnesium 1.7 L (1.8-2.4) mg/dL Total Bilirubin 0.2 (0.2-1.0) mg/dL AST 44 H (15-37) IU/L ALT 45 (14-63) IU/L Alkaline Phosphatase 47 (46-116) U/L Total Protein 5.9 L (6.4-8.2) g/dL Albumin 2.6 L (3.4-5.0) g/dL Globulin 3.3 (2.6-4.0) g/dL Albumin/Globulin Ratio 0.8 L (0.9-1.6) Med Orders - Current: Current Medications Acetaminophen (Tylenol) 650 mg PO Q4H PRN PRN Reason: Pain Last Admin: 08/03/20 20:59 Dose: 650 mg Documented by: Dexamethasone (Dexamethasone) 6 mg PO DAILY [facility] Last Admin: 08/04/20 10:58 Dose: 6 mg Documented by: Enoxaparin Sodium (Lovenox) 40 mg SUBCUT DAILY [facility] Last Admin: 08/04/20 08:36 Dose: 40 mg Documented by: Remdesivir 100 mg/ Sodium (Chloride) 100 mls @ 100 mls/hr IV Q24H [facility] Pantoprazole Sodium 40 mg/ (Sodium Chloride) 10 mls @ 300 mls/hr IV DAILY [facility] Ibuprofen (Motrin) 400 mg PO Q8H PRN PRN Reason: Pain Levothyroxine Sodium (Levothyroxine) 112 mcg PO ACBREAKFAST [facility] Last Admin: 08/04/20 06:47 Dose: 112 mcg Documented by: Ondansetron HCl (Zofran) 4 mg IVPUSH Q4H PRN PRN Reason: Nausea/Vomiting Last Admin: 08/03/20 18:43 Dose: 4 mg Documented by: Paroxetine HCl (Paxil) 20 mg PO DAILY [facility] Last Admin: 08/04/20 08:35 Dose: 20 mg Documented by: Midodrine 5 Mg Tab 1 each PO DAILY [facility] Last Admin: 08/04/20 10:59 Dose: 1 each Documented by: Discontinued Medications Aspirin (Aspirin) 81 mg PO DAILY [facility] Last Admin: 08/04/20 08:35 Dose: 81 mg Documented by: Enoxaparin Sodium (Lovenox) 40 mg SUBCUT DAILY [facility] Last Admin: 08/02/20 23:30 Dose: Not Given Documented by: Sodium Chloride (Normal Saline) 1,000 mls @ 125 mls/hr IV Q8H [facility] Last Admin: 08/02/20 14:29 Dose: 125 mls/hr Documented by: Sodium Chloride (Normal Saline) 1,000 mls @ 50 mls/hr IV Q8H [facility] Last Admin: 08/03/20 12:04 Dose: 125 mls/hr Documented by: Sodium Chloride (Normal Saline) 500 mls @ 999 mls/hr IV BOLUS [facility] Stop: 08/02/20 22:01 Last Admin: 08/02/20 21:44 Dose: 999 mls/hr Documented by: Sodium Chloride (Normal Saline) 500 mls @ 999 mls/hr IV BOLUS [facility] Stop: 08/03/20 00:46 Last Admin: 08/03/20 00:33 Dose: 999 mls/hr Documented by: Remdesivir 200 mg/ Sodium (Chloride) 250 mls @ 125 mls/hr IV ONETIME ONE Stop: 08/04/20 13:29 Ketorolac Tromethamine (Toradol) Confirm Administered Dose 30 mg .ROUTE .STK-MED ONE Stop: 08/02/20 14:10 Last Admin: 08/02/20 17:14 Dose: Not Given Documented by: Ketorolac Tromethamine (Toradol) 30 mg IVPUSH ONETIME ONE Stop: 08/02/20 17:14 Last Admin: 08/02/20 14:23 Dose: 30 mg Documented by: Midodrine (Midodrine) 5 mg PO TID [facility] Ondansetron HCl (Zofran) Confirm Administered Dose 4 mg .ROUTE .STK-MED ONE Stop: 08/02/20 14:10 Last Admin: 08/02/20 17:14 Dose: Not Given Documented by: Ondansetron HCl (Zofran) 4 mg IVPUSH ONETIME ONE Stop: 08/02/20 17:15 Last Admin: 08/02/20 17:15 Dose: 4 mg Documented by: - Exam General: Alert, Oriented Neck: Supple Lungs: Clear to Auscultation, Normal Respiratory Effort Cardiovascular: Regular Rate, Regular Rhythm GI/Abdominal Exam: Soft, Non-Tender, No Distention Extremities: Non-Tender, No Pedal Edema Skin: Warm, Dry, Intact Neurological: No New Focal Deficit Sepsis Event Note - Evaluation Sepsis Screening Result: No Definite Risk - Focused Exam Vital Signs: Vital Signs Temp Temp Pulse Resp BP Pulse Ox 08/04/20 10:57 37.6 C 83 91 L 08/04/20 08:33 37.8 C 77 16 114/55 L 94 L 08/04/20 08:21 38.8 C H 85 16 104/47 L 87 L 08/04/20 04:00 37.5 C 86 17 102/50 L 91 L - Problem List Review Problem List Initiated/Reviewed/Updated: Yes - My Orders Last 24 Hours: My Active Orders 08/03/20 17:15 Communication Order [RC] DAILY 08/04/20 09:13 Admission Status [Patient Status] [ADT] Routine 08/04/20 09:15 dexAMETHasone 6 mg PO DAILY 08/04/20 13:17 Ibuprofen [Motrin] 400 mg PO Q8H PRN 08/04/20 13:30 Pantoprazole [ProTONIX IV] 40 mg Sodium Chloride 0.9% [Normal Saline] 10 ml IV DAILY 08/05/20 05:11 CBC WITH AUTO DIFF [HEME] AM COMPREHENSIVE METABOLIC PN,CMP [CHEM] AM 08/05/20 12:30 Remdesivir (Eua) [Remdesivir (EUA)] 100 mg Sodium Chloride 0.9% [Normal Saline] 100 ml IV Q24H - Plan Plan:: 69 yo female admitted for dehydration due to COVID with GI symptoms. Diarrhea, nausea and vomiting has improved but has developed hypoxia. COVID pneumonia: Patient was given fact sheet on Remdesivir and inform of the emergency use FDA approval and is aware of the side effects including elevated liver enzymes. Patient has agreed to its use. Will also start dexamethasone and continue subcu lovenox.
[2020-08-04] MEDS: Pantoprazole 40 MG in Sodium Chloride 0.9% 10 ML IV SCH (13:45)
[2020-08-05 06:36] LABS: BLOOD UREA NITROGEN,BUN 16 mg/dL (7.0-18.0); CARBON DIOXIDE,CO2 27.1 mmol/L (21.0-32.0); CHLORIDE,CL 105 mmol/L (98-107); GLUCOSE RANDOM 136 mg/dL (74-106); POTASSIUM,K 4.1 mmol/L (3.5-5.1); SODIUM,NA 140 mmol/L (136-145)
[2020-08-05] MEDS: PARoxetine 20 MG Tab PO SCH (08:14)
[2020-08-05] MEDS: Enoxaparin 40 MG/0.4 ML Syringe SUBCUT SCH (08:14)
[2020-08-05] MEDS: Dexamethasone 4 MG Tab PO SCH (08:15)
[2020-08-05] MEDS: Levothyroxine 112 MCG Tab PO SCH (08:15)
[2020-08-05] MEDS: Pantoprazole 40 MG in Sodium Chloride 0.9% 10 ML IV SCH (10:49)
[2020-08-05] MEDS: Midodrine 5 MG Tab PO SCH (10:49)
[2020-08-05] MEDS: Ondansetron 4 MG/2 ML SDV IVPUSH PRN (12:11)
--- NOTE | 2020-08-05 12:27 | PCM.PN ---
- General Info Date of Service: 08/05/20 - Review of Systems Systems Review Comment:: feeling better - Patient Data Vitals - Most Recent: Last Vital Signs Temp 37.3 C 08/05/20 12:12 Pulse 61 08/05/20 12:12 Resp 15 08/05/20 12:12 BP 122/62 08/05/20 12:12 Pulse Ox 93 L 08/05/20 12:12 Weight - Most Recent: 56.699 kg I&O - Last 24 Hours: Intake & Output 08/04/20 08/05/20 08/05/20 22:59 06:59 14:59 Intake Total 800 100 Output Total 1000 400 Balance -200 -300 Lab Results Last 24 Hours: Laboratory Results - last 24 hr 08/04/20 08/05/20 08/05/20 Range/Units 13:52 05:35 05:35 WBC 5.08 (4.0-11.0) K/uL RBC 4.23 L (4.30-5.90) M/uL Hgb 12.3 (12.0-16.0) g/dL Hct 38.4 (36.0-46.0) % MCV 90.8 (80.0-98.0) fL MCH 29.1 (27.0-32.0) pg MCHC 32.0 (31.0-37.0) g/dL RDW Std Deviation 45.8 (28.0-62.0) fl RDW Coeff of Desiree 14 (11.0-15.0) % Plt Count 255 (150-400) K/uL MPV 10.20 (7.40-12.00) fL Neut % (Auto) 77.6 (48.0-80.0) % Lymph % (Auto) 17.3 (16.0-40.0) % [place] % (Auto) 5.1 (0.0-15.0) % Eos % (Auto) 0.0 (0.0-7.0) % Baso % (Auto) 0.0 (0.0-1.5) % Neut # (Auto) 3.9 (1.4-5.7) K/uL Lymph # (Auto) 0.9 (0.6-2.4) K/uL [place] # (Auto) 0.3 (0.0-0.8) K/uL Eos # (Auto) 0.0 (0.0-0.7) K/uL Baso # (Auto) 0.0 (0.0-0.1) K/uL Nucleated RBC % 0.0 /100WBC Nucleated RBCs # 0 K/uL Sodium 140 (136-145) mmol/L Potassium 4.1 (3.5-5.1) mmol/L Chloride 105 (98-107) mmol/L Carbon Dioxide 27.1 (21.0-32.0) mmol/L BUN 16 (7.0-18.0) mg/dL Creatinine 0.9 (0.6-1.0) mg/dL Est Cr Clr Drug Dosing 52.80 mL/min Estimated GFR (MDRD) > 60.0 ml/min Glucose 136 H (74-106) mg/dL POC Glucose 118 H (60-110) mg/dL Calcium 8.2 L (8.5-10.1) mg/dL Total Bilirubin 0.2 (0.2-1.0) mg/dL AST 44 H (15-37) IU/L ALT 45 (14-63) IU/L Alkaline Phosphatase 43 L (46-116) U/L Total Protein 5.9 L (6.4-8.2) g/dL Albumin 2.3 L (3.4-5.0) g/dL Globulin 3.6 (2.6-4.0) g/dL Albumin/Globulin Ratio 0.6 L (0.9-1.6) Med Orders - Current: Current Medications Acetaminophen (Tylenol) 650 mg PO Q4H PRN PRN Reason: Pain Last Admin: 08/03/20 20:59 Dose: 650 mg Documented by: Dexamethasone (Dexamethasone) 6 mg PO DAILY [facility] Last Admin: 08/05/20 08:15 Dose: 6 mg Documented by: Enoxaparin Sodium (Lovenox) 40 mg SUBCUT DAILY [facility] Last Admin: 08/05/20 08:14 Dose: 40 mg Documented by: Remdesivir 100 mg/ Sodium (Chloride) 100 mls @ 100 mls/hr IV Q24H [facility] Pantoprazole Sodium 40 mg/ (Sodium Chloride) 10 mls @ 300 mls/hr IV DAILY [facility] Last Admin: 08/05/20 10:49 Dose: 300 mls/hr Documented by: Ibuprofen (Motrin) 400 mg PO Q8H PRN PRN Reason: Pain Levothyroxine Sodium (Levothyroxine) 112 mcg PO ACBREAKFAST [facility] Last Admin: 08/05/20 08:15 Dose: 112 mcg Documented by: Ondansetron HCl (Zofran) 4 mg IVPUSH Q4H PRN PRN Reason: Nausea/Vomiting Last Admin: 08/05/20 12:11 Dose: 4 mg Documented by: Paroxetine HCl (Paxil) 20 mg PO DAILY [facility] Last Admin: 08/05/20 08:14 Dose: 20 mg Documented by: Midodrine 5 Mg Tab 1 each PO DAILY [facility] Last Admin: 08/05/20 10:49 Dose: 1 each Documented by: Discontinued Medications Aspirin (Aspirin) 81 mg PO DAILY [facility] Last Admin: 08/04/20 08:35 Dose: 81 mg Documented by: Enoxaparin Sodium (Lovenox) 40 mg SUBCUT DAILY [facility] Last Admin: 08/02/20 23:30 Dose: Not Given Documented by: Sodium Chloride (Normal Saline) 1,000 mls @ 125 mls/hr IV Q8H [facility] Last Admin: 08/02/20 14:29 Dose: 125 mls/hr Documented by: Sodium Chloride (Normal Saline) 1,000 mls @ 50 mls/hr IV Q8H [facility] Last Admin: 08/03/20 12:04 Dose: 125 mls/hr Documented by: Sodium Chloride (Normal Saline) 500 mls @ 999 mls/hr IV BOLUS [facility] Stop: 08/02/20 22:01 Last Admin: 08/02/20 21:44 Dose: 999 mls/hr Documented by: Sodium Chloride (Normal Saline) 500 mls @ 999 mls/hr IV BOLUS [facility] Stop: 08/03/20 00:46 Last Admin: 08/03/20 00:33 Dose: 999 mls/hr Documented by: Remdesivir 200 mg/ Sodium (Chloride) 250 mls @ 125 mls/hr IV ONETIME ONE Stop: 08/04/20 13:29 Last Admin: 08/04/20 13:45 Dose: 125 mls/hr Documented by: Ibuprofen (Motrin) Confirm Administered Dose 400 mg .ROUTE .STK-MED ONE Stop: 08/04/20 13:35 Last Admin: 08/04/20 13:45 Dose: 400 mg Documented by: Ketorolac Tromethamine (Toradol) Confirm Administered Dose 30 mg .ROUTE .STK-MED ONE Stop: 08/02/20 14:10 Last Admin: 08/02/20 17:14 Dose: Not Given Documented by: Ketorolac Tromethamine (Toradol) 30 mg IVPUSH ONETIME ONE Stop: 08/02/20 17:14 Last Admin: 08/02/20 14:23 Dose: 30 mg Documented by: Midodrine (Midodrine) 5 mg PO TID [facility] Ondansetron HCl (Zofran) Confirm Administered Dose 4 mg .ROUTE .STK-MED ONE Stop: 08/02/20 14:10 Last Admin: 08/02/20 17:14 Dose: Not Given Documented by: Ondansetron HCl (Zofran) 4 mg IVPUSH ONETIME ONE Stop: 08/02/20 17:15 Last Admin: 08/02/20 17:15 Dose: 4 mg Documented by: Pantoprazole Sodium (Protonix Iv) Confirm Administered Dose 40 mg .ROUTE .STK-MED ONE Stop: 08/04/20 13:35 Last Admin: 08/04/20 13:45 Dose: Not Given Documented by: - Exam General: Alert, Oriented Neck: Supple Lungs: Clear to Auscultation, Normal Respiratory Effort Cardiovascular: Regular Rate, Regular Rhythm GI/Abdominal Exam: Soft, Non-Tender, No Distention Extremities: Non-Tender, No Pedal Edema Sepsis Event Note - Evaluation Sepsis Screening Result: No Definite Risk - Focused Exam Vital Signs: Vital Signs Temp Pulse Resp BP Pulse Ox 08/05/20 12:12 37.3 C 61 15 122/62 93 L 08/05/20 08:19 36.7 C 65 16 110/53 L 93 L 08/05/20 04:24 36.1 C 65 16 108/55 L 93 L 08/05/20 00:42 36.1 C 57 L 16 125/55 L 94 L - Problem List Review Problem List Initiated/Reviewed/Updated: Yes - My Orders Last 24 Hours: My Active Orders 08/04/20 13:17 Ibuprofen [Motrin] 400 mg PO Q8H PRN 08/04/20 13:30 Pantoprazole [ProTONIX IV] 40 mg Sodium Chloride 0.9% [Normal Saline] 10 ml IV DAILY 08/05/20 14:00 Remdesivir (Eua) [Remdesivir (EUA)] 100 mg Sodium Chloride 0.9% [Normal Saline] 100 ml IV Q24H 08/06/20 05:11 CBC WITH AUTO DIFF [HEME] AM COMPREHENSIVE METABOLIC PN,CMP [CHEM] AM - Plan Plan:: 69 yo female admitted for dehydration due to COVID with GI symptoms. Diarrhea, nausea and vomiting has improved but has developed hypoxia yesterday. COVID pneumonia: continue dexamethasone and remdesivir. wean of supplemental oxygen Dispo: anticipate discharge home tomorrow.
[2020-08-05] MEDS: REMDESIVIR 100 MG in Sodium Chloride 0.9% 100 ML IV SCH (15:48)
[2020-08-06 06:42] LABS: BLOOD UREA NITROGEN,BUN 18 mg/dL (7.0-18.0); CARBON DIOXIDE,CO2 27.2 mmol/L (21.0-32.0); CHLORIDE,CL 106 mmol/L (98-107); GLUCOSE RANDOM 148 mg/dL (74-106); POTASSIUM,K 4.2 mmol/L (3.5-5.1); SODIUM,NA 140 mmol/L (136-145)
[2020-08-06] MEDS: Levothyroxine 112 MCG Tab PO SCH (07:58)
[2020-08-06] MEDS: Dexamethasone 4 MG Tab PO SCH (08:06)
[2020-08-06] MEDS: PARoxetine 20 MG Tab PO SCH (08:06)
[2020-08-06] MEDS: Pantoprazole 40 MG in Sodium Chloride 0.9% 10 ML IV SCH (08:08)
[2020-08-06] MEDS: Enoxaparin 40 MG/0.4 ML Syringe SUBCUT SCH (08:09)
[2020-08-06] MEDS: Midodrine 5 MG Tab PO SCH (10:30)
--- NOTE | 2020-08-06 11:39 | PCM.DCSUM1 ---
Discharge Summary - Discharge Data Discharge Date: 08/06/20 Discharge Disposition: Home, Self-Care 01 Condition: Good - Referral to Home Health Primary Care Physician: Vj Julian MD - Patient Summary/Data Hospital Course: 69 yo female admitted for COVID-19. She presented with with symptoms of nausea, vomiting, diarrhea and fevers. She had a prior positive COVID test before admission. She was admitted and treated supportively at first with IV fluids as she appear dehydrated and has syncopal episodes at john. Her nausea resolved but she then developed shortness of breath and became hypoxic requiring 2 liters of [place] O2. Chest x-ray on admission showed right lower lung infiltrates. She was treated with Dexamethasone, and Remdesivir. She did have improvement in her symptoms and today she is requesting discharge home. She is to follow up with Dr. Julian. - Patient Instructions Diet: Usual Diet as Tolerated Activity: As Tolerated Notify Provider of: Fever, Increased Pain, Nausea and/or Vomiting - Discharge Plan Prescriptions/Med Rec: dexAMETHasone [Decadron] 6 mg PO DAILY #7 tablet Home Medications: Home Meds Multivitamin with Minerals [Multiple Vitamin] 1 tab PO DAILY 09/03/15 [History] PARoxetine [Paxil] 20 mg PO DAILY 09/03/15 [History] Aspirin 81 mg PO DAILY 05/26/19 [History] Calcium Carbonate/Vitamin D3 [Calcium 250+D] 1 each PO DAILY 07/29/20 [History] Levothyroxine 112 mcg PO ACBREAKFAST 08/03/20 [History] Midodrine 5 mg PO DAILY 08/03/20 [History] Midodrine 5 mg PO BID PRN 08/05/20 [History] dexAMETHasone [Decadron] 6 mg PO DAILY #7 tablet 08/06/20 [Rx] Referrals: Vj Julian MD [Primary Care Provider] - - Discharge Summary/Plan Comment DC Time >30 min.: No - Patient Data Vitals - Most Recent: Last Vital Signs Temp 2.7 C L 08/06/20 07:00 Pulse 70 08/06/20 07:00 Resp 14 08/06/20 07:00 BP 122/66 08/06/20 07:00 Pulse Ox 92 L 08/06/20 07:00 Weight - Most Recent: 56.699 kg I&O - Last 24 hours: Intake & Output 08/05/20 08/06/20 08/06/20 22:59 06:59 14:59 Intake Total 800 400 Output Total 700 600 Balance 100 -200 Lab Results - Last 24 hrs: Laboratory Results - last 24 hr 08/06/20 08/06/20 Range/Units 05:45 05:45 WBC 7.19 (4.0-11.0) K/uL RBC 3.83 L (4.30-5.90) M/uL Hgb 11.5 L (12.0-16.0) g/dL Hct 34.4 L (36.0-46.0) % MCV 89.8 (80.0-98.0) fL MCH 30.0 (27.0-32.0) pg MCHC 33.4 (31.0-37.0) g/dL RDW Std Deviation 45.7 (28.0-62.0) fl RDW Coeff of Desiree 14 (11.0-15.0) % Plt Count 310 (150-400) K/uL MPV 9.90 (7.40-12.00) fL Neut % (Auto) 78.7 (48.0-80.0) % Lymph % (Auto) 14.9 L (16.0-40.0) % [place] % (Auto) 6.3 (0.0-15.0) % Eos % (Auto) 0.0 (0.0-7.0) % Baso % (Auto) 0.1 (0.0-1.5) % Neut # (Auto) 5.7 (1.4-5.7) K/uL Lymph # (Auto) 1.1 (0.6-2.4) K/uL [place] # (Auto) 0.5 (0.0-0.8) K/uL Eos # (Auto) 0.0 (0.0-0.7) K/uL Baso # (Auto) 0.0 (0.0-0.1) K/uL Nucleated RBC % 0.0 /100WBC Nucleated RBCs # 0 K/uL Sodium 140 (136-145) mmol/L Potassium 4.2 (3.5-5.1) mmol/L Chloride 106 (98-107) mmol/L Carbon Dioxide 27.2 (21.0-32.0) mmol/L BUN 18 (7.0-18.0) mg/dL Creatinine 0.8 (0.6-1.0) mg/dL Est Cr Clr Drug Dosing 59.41 mL/min Estimated GFR (MDRD) > 60.0 ml/min Glucose 148 H (74-106) mg/dL Calcium 8.2 L (8.5-10.1) mg/dL Total Bilirubin 0.2 (0.2-1.0) mg/dL AST 43 H (15-37) IU/L ALT 49 (14-63) IU/L Alkaline Phosphatase 41 L (46-116) U/L Total Protein 5.7 L (6.4-8.2) g/dL Albumin 2.4 L (3.4-5.0) g/dL Globulin 3.3 (2.6-4.0) g/dL Albumin/Globulin Ratio 0.7 L (0.9-1.6) Med Orders - Current: Current Medications Acetaminophen (Tylenol) 650 mg PO Q4H PRN PRN Reason: Pain Last Admin: 08/03/20 20:59 Dose: 650 mg Documented by: Dexamethasone (Dexamethasone) 6 mg PO DAILY [facility] Last Admin: 08/06/20 08:06 Dose: 6 mg Documented by: Enoxaparin Sodium (Lovenox) 40 mg SUBCUT DAILY [facility] Last Admin: 08/06/20 08:09 Dose: 40 mg Documented by: Remdesivir 100 mg/ Sodium (Chloride) 100 mls @ 100 mls/hr IV Q24H [facility] Stop: 08/08/20 14:01 Last Admin: 08/05/20 15:48 Dose: 100 mls/hr Documented by: Pantoprazole Sodium 40 mg/ (Sodium Chloride) 10 mls @ 300 mls/hr IV DAILY [facility] Last Admin: 08/06/20 08:08 Dose: 300 mls/hr Documented by: Ibuprofen (Motrin) 400 mg PO Q8H PRN PRN Reason: Pain Levothyroxine Sodium (Levothyroxine) 112 mcg PO ACBREAKFAST [facility] Last Admin: 08/06/20 07:58 Dose: 112 mcg Documented by: Ondansetron HCl (Zofran) 4 mg IVPUSH Q4H PRN PRN Reason: Nausea/Vomiting Last Admin: 08/05/20 12:11 Dose: 4 mg Documented by: Paroxetine HCl (Paxil) 20 mg PO DAILY [facility] Last Admin: 08/06/20 08:06 Dose: 20 mg Documented by: Midodrine 5 Mg Tab 1 each PO DAILY [facility] Last Admin: 08/06/20 10:30 Dose: 1 each Documented by: Discontinued Medications Aspirin (Aspirin) 81 mg PO DAILY [facility] Last Admin: 08/04/20 08:35 Dose: 81 mg Documented by: Enoxaparin Sodium (Lovenox) 40 mg SUBCUT DAILY [facility] Last Admin: 08/02/20 23:30 Dose: Not Given Documented by: Sodium Chloride (Normal Saline) 1,000 mls @ 125 mls/hr IV Q8H [facility] Last Admin: 08/02/20 14:29 Dose: 125 mls/hr Documented by: Sodium Chloride (Normal Saline) 1,000 mls @ 50 mls/hr IV Q8H [facility] Last Admin: 08/03/20 12:04 Dose: 125 mls/hr Documented by: Sodium Chloride (Normal Saline) 500 mls @ 999 mls/hr IV BOLUS [facility] Stop: 08/02/20 22:01 Last Admin: 08/02/20 21:44 Dose: 999 mls/hr Documented by: Sodium Chloride (Normal Saline) 500 mls @ 999 mls/hr IV BOLUS [facility] Stop: 08/03/20 00:46 Last Admin: 08/03/20 00:33 Dose: 999 mls/hr Documented by: Remdesivir 200 mg/ Sodium (Chloride) 250 mls @ 125 mls/hr IV ONETIME ONE Stop: 08/04/20 13:29 Last Admin: 08/04/20 13:45 Dose: 125 mls/hr Documented by: Ibuprofen (Motrin) Confirm Administered Dose 400 mg .ROUTE .STK-MED ONE Stop: 08/04/20 13:35 Last Admin: 08/04/20 13:45 Dose: 400 mg Documented by: Ketorolac Tromethamine (Toradol) Confirm Administered Dose 30 mg .ROUTE .STK-MED ONE Stop: 08/02/20 14:10 Last Admin: 08/02/20 17:14 Dose: Not Given Documented by: Ketorolac Tromethamine (Toradol) 30 mg IVPUSH ONETIME ONE Stop: 08/02/20 17:14 Last Admin: 09/25/20 14:23 Dose: 30 mg Documented by: Midodrine (Midodrine) 5 mg PO TID [facility] Ondansetron HCl (Zofran) Confirm Administered Dose 4 mg .ROUTE .STK-MED ONE Stop: 08/02/20 14:10 Last Admin: 08/02/20 17:14 Dose: Not Given Documented by: Ondansetron HCl (Zofran) 4 mg IVPUSH ONETIME ONE Stop: 08/02/20 17:15 Last Admin: 08/02/20 17:15 Dose: 4 mg Documented by: Pantoprazole Sodium (Protonix Iv) Confirm Administered Dose 40 mg .ROUTE .STK-MED ONE Stop: 08/04/20 13:35 Last Admin: 08/04/20 13:45 Dose: Not Given Documented by:
[2020-08-06 12:08] VITALS: BP 132/69; PULSE 63
[2020-08-06] MEDS: REMDESIVIR 100 MG in Sodium Chloride 0.9% 100 ML IV SCH (14:06)
== END 2020-08-06 15:25 | disposition home or self-care (01) | DRG 177 ==
LOC: MW.ED 11:54 → MW.MS 15:03 → OBSVTOIN 08-04 09:14 → MW.MS 08-04 12:06
PROVIDERS: ADMIT Internal Medicine; ATTEND Internal Medicine
PROC: XW033E5 Introduction of Remdesivir Anti-infective into Peripheral Vein, Percutaneous Approach, New Technology Group 5 (ICD-10-PCS; 2020-08-04)
PROC: 8E0ZXY6 Isolation (ICD-10-PCS; principal; 2020-08-05)
PROC: XW033E5 Introduction of Remdesivir Anti-infective into Peripheral Vein, Percutaneous Approach, New Technology Group 5 (ICD-10-PCS; 2020-08-05)
DX: U07.1 COVID-19 (principal); J12.89 Other viral pneumonia; R09.02 Hypoxemia; R55 Syncope and collapse; E03.9 Hypothyroidism, unspecified; I10 Essential (primary) hypertension; I34.1 Nonrheumatic mitral (valve) prolapse; F32.9 Major depressive disorder, single episode, unspecified; Z98.890 Other specified postprocedural states; E05.90 Thyrotoxicosis, unspecified without thyrotoxic crisis or storm; E86.0 Dehydration; Z98.49 Cataract extraction status, unspecified eye; Z79.82 Long term (current) use of aspirin; Z79.899 Other long term (current) drug therapy; Z79.890 Hormone replacement therapy; Z88.1 Allergy status to other antibiotic agents; Z90.710 Acquired absence of both cervix and uterus
CPT/HCPCS: 36415 ×3; 71045; 80053 ×3; 83605; 83735; 84484; 85025 ×3; 85379; 93005; 96361 ×3; 96372 ×3; 96374; 96375; 96376; 99285; A9270 ×10; G0378 ×4; J1650 ×3; J1885; J2405 ×2; J7030 ×5; J7040; U0002; 82962; 99219; 99225; 99231; 99232; 99238; C9113; J7050; J8540

== ENCOUNTER 2020-08-07 11:41 | Emergency (ER) | payer MEDICARE, OTHER ==
--- NOTE | 2020-08-07 12:00 | EDM.PDOC ---
ED HPI GENERAL MEDICAL PROBLEM - General Chief Complaint: Respiratory Problem Stated Complaint: SOB COVID Time Seen by Provider: 08/07/20 11:42 - History of Present Illness INITIAL COMMENTS - FREE TEXT/NARRATIVE: 69F PMHx hypothyroidism, midodrine use, syncope, recent admit for COVID-19 discharged 2 days ago presents for continued COVID symptoms. Patient endorses feeling very weak and not eating. Decreased appetite. Difficulty with ambulation 2/2 weakness. Body aches. Fever. Denies vomiting, denies SOB, denies CP. Generalized body aches Pain Score (Numeric/FACES): 8 - Related Data Allergies Allergy/AdvReac Type Severity Reaction Status Date / Time cephalexin monohydrate Allergy Hives Verified 08/07/20 12:00 [From [facility]] Home Meds: Home Meds Multivitamin with Minerals [Multiple Vitamin] 1 tab PO DAILY 09/03/15 [History] PARoxetine [Paxil] 20 mg PO DAILY 09/03/15 [History] Aspirin 81 mg PO DAILY 05/26/19 [History] Calcium Carbonate/Vitamin D3 [Calcium 250+D] 1 each PO DAILY 07/29/20 [History] Levothyroxine 112 mcg PO ACBREAKFAST 08/03/20 [History] Midodrine 5 mg PO DAILY 08/03/20 [History] Midodrine 5 mg PO BID PRN 08/05/20 [History] dexAMETHasone [Decadron] 6 mg PO DAILY #7 tablet 08/06/20 [Rx] Past Medical History Cardiovascular History: Reports: Hypertension Other Cardiovascular History: Mitral valve prolapse Musculoskeletal History: Reports: Other (See Below) Other Musculoskeletal History: TMJ Psychiatric History: Reports: Depression Endocrine/Metabolic History: Reports: Hyperthyroidism - Infectious Disease History Infectious Disease History: Reports: Chicken Pox, Influenza, Measles, Mumps, Novel Coronavirus - Past Surgical History HEENT Surgical History: Reports: Cataract Surgery, Eye Surgery, LASIK Female Surgical History: Reports: Breast Biopsy, Hysterectomy Social & Family History - Family History Family Medical History: Noncontributory - Caffeine Use Caffeine Use: Reports: None ED ROS GENERAL - Review of Systems Review Of Systems: Comprehensive ROS is negative, except as noted in HPI. ED EXAM, GENERAL - Physical Exam Exam: See Below Exam Limited By: No Limitations General Appearance: Alert, WD/WN, No Apparent Distress Ears: Normal External Exam Nose: Normal Inspection Throat/Mouth: Normal Inspection, Normal Voice, No Airway Compromise Head: Atraumatic, Normocephalic Neck: Normal Inspection Respiratory/Chest: No Respiratory Distress, Lungs Clear, Normal Breath Sounds, No Accessory Muscle Use, Prolonged Expiration Cardiovascular: Regular Rate, Rhythm GI/Abdominal: Soft, Non-Tender Extremities: Normal Inspection Neurological: Alert Psychiatric: Normal Affect, Normal Mood Skin Exam: Warm, Dry, Intact EKG INTERPRETATION EKG Date: 08/07/20 Time: 12:35 Rhythm: NSR Rate (Beats/Min): 60 [place]: Normal P-Wave: Present QRS: Normal ST-T: Normal QT: Normal ME/PQ Interval: 117 Course - Vital Signs Last Recorded V/S: Last Vital Signs Temp 99.4 F 08/07/20 12:25 Pulse 67 08/07/20 12:00 Resp 18 08/07/20 12:00 BP 131/67 08/07/20 12:00 Pulse Ox 94 L 08/07/20 12:00 - Orders/Labs/Meds Orders: Active Orders 24 hr Category Date Time Status Cardiac Monitoring [RC] . DIRECTED Care 08/07/20 12:09 Active EKG Documentation Completion [RC] STAT Care 08/07/20 12:09 Active Pulse Oximetry [RC] ASDIRECTED Care 08/07/20 12:09 Active Sodium Chloride 0.9% [Saline Flush] Med 08/07/20 12:09 Active 10 ml FLUSH ASDIRECTED PRN Sodium Chloride 0.9% [Saline Flush] Med 08/07/20 12:09 Active 2.5 ml FLUSH ASDIRECTED PRN Saline Lock Insert [OM.PC] Stat Oth 08/07/20 12:09 Ordered Medication Orders Sodium Chloride (Saline Flush) 10 ml FLUSH ASDIRECTED PRN PRN Reason: Keep Vein Open Last Admin: 08/07/20 12:25 Dose: 10 ml Documented by: [id number] Sodium Chloride (Saline Flush) 2.5 ml FLUSH ASDIRECTED PRN PRN Reason: Keep Vein Open Last Admin: 08/07/20 12:26 Dose: 2.5 ml Documented by: [id number] Labs: Laboratory Tests 08/07/20 08/07/20 08/07/20 Range/Units 12:42 12:42 12:42 WBC 6.75 (4.0-11.0) K/uL RBC 4.47 (4.30-5.90) M/uL Hgb 12.1 (12.0-16.0) g/dL Hct 40.2 (36.0-46.0) % MCV 89.9 (80.0-98.0) fL MCH 27.1 (27.0-32.0) pg MCHC 30.1 L (31.0-37.0) g/dL RDW Std Deviation 45.0 (28.0-62.0) fl RDW Coeff of Desiree 14 (11.0-15.0) % Plt Count 425 H (150-400) K/uL MPV 10.00 (7.40-12.00) fL Add Manual Diff YES Neutrophils % (Manual) 80 (48.0-80.0) % Band Neutrophils % 1 % Lymphocytes % (Manual) 12 L (16.0-40.0) % Monocytes % (Manual) 7 (0.0-15.0) % Nucleated RBC % 0.0 /100WBC Absolute Seg Neuts 5.4 (1.4-5.7) Band Neutrophils # 0.1 Lymphocytes # (Manual) 0.8 (0.6-2.4) Monocytes # (Manual) 0.5 (0.0-0.8) Nucleated RBCs # 0 K/uL INR 1.15 APTT 25.6 (18.6-31.3) SEC D-Dimer, Quantitative (0.0-0.50) mg/L FEU Lactate 1.6 (0.20-2.00) mmol/L Sodium (136-145) mmol/L Potassium (3.5-5.1) mmol/L Chloride (98-107) mmol/L Carbon Dioxide (21.0-32.0) mmol/L BUN (7.0-18.0) mg/dL Creatinine (0.6-1.0) mg/dL Est Cr Clr Drug Dosing mL/min Estimated GFR (MDRD) ml/min Glucose (74-106) mg/dL Calcium (8.5-10.1) mg/dL Magnesium (1.8-2.4) mg/dL Total Bilirubin (0.2-1.0) mg/dL AST (15-37) IU/L ALT (14-63) IU/L Alkaline Phosphatase (46-116) U/L Troponin I (0.000-0.056) ng/mL C-Reactive Protein (0.00-0.90) mg/dL B-Natriuretic Peptide (<100) PG/ML Total Protein (6.4-8.2) g/dL Albumin (3.4-5.0) g/dL Globulin (2.6-4.0) g/dL Albumin/Globulin Ratio (0.9-1.6) 08/07/20 08/07/20 08/07/20 Range/Units 12:42 12:42 12:42 WBC (4.0-11.0) K/uL RBC (4.30-5.90) M/uL Hgb (12.0-16.0) g/dL Hct (36.0-46.0) % MCV (80.0-98.0) fL MCH (27.0-32.0) pg MCHC (31.0-37.0) g/dL RDW Std Deviation (28.0-62.0) fl RDW Coeff of Desiree (11.0-15.0) % Plt Count (150-400) K/uL MPV (7.40-12.00) fL Add Manual Diff Neutrophils % (Manual) (48.0-80.0) % Band Neutrophils % % Lymphocytes % (Manual) (16.0-40.0) % Monocytes % (Manual) (0.0-15.0) % Nucleated RBC % /100WBC Absolute Seg Neuts (1.4-5.7) Band Neutrophils # Lymphocytes # (Manual) (0.6-2.4) Monocytes # (Manual) (0.0-0.8) Nucleated RBCs # K/uL INR APTT (18.6-31.3) SEC D-Dimer, Quantitative 0.72 H (0.0-0.50) mg/L FEU Lactate (0.20-2.00) mmol/L Sodium 140 (136-145) mmol/L Potassium 3.7 (3.5-5.1) mmol/L Chloride 103 (98-107) mmol/L Carbon Dioxide 28.9 (21.0-32.0) mmol/L BUN 21 H (7.0-18.0) mg/dL Creatinine 0.9 (0.6-1.0) mg/dL Est Cr Clr Drug Dosing 57.37 mL/min Estimated GFR (MDRD) > 60.0 ml/min Glucose 126 H (74-106) mg/dL Calcium 8.8 (8.5-10.1) mg/dL Magnesium 2.2 (1.8-2.4) mg/dL Total Bilirubin 0.4 (0.2-1.0) mg/dL AST 85 H (15-37) IU/L ALT 76 H (14-63) IU/L Alkaline Phosphatase 50 (46-116) U/L Troponin I < 0.050 (0.000-0.056) ng/mL C-Reactive Protein 2.70 H (0.00-0.90) mg/dL B-Natriuretic Peptide 337 H (<100) PG/ML Total Protein 6.8 (6.4-8.2) g/dL Albumin 3.0 L (3.4-5.0) g/dL Globulin 3.8 (2.6-4.0) g/dL Albumin/Globulin Ratio 0.8 L (0.9-1.6) Meds: Medications Generic Name Dose Route Start Last Admin Trade Name Freq PRN Reason Stop Dose Admin Sodium Chloride 10 ml 08/07/20 12:08/07/20 12:25 Saline Flush FLUSH 10 ml ASDIRECTED PRN Administration Keep Vein Open Sodium Chloride 2.5 ml 08/07/20 12:08/07/20 12:26 Saline Flush FLUSH 2.5 ml ASDIRECTED PRN Administration Keep Vein Open Discontinued Medications Generic Name Dose Route Start Last Admin Trade Name Freq PRN Reason Stop Dose Admin Acetaminophen 1,000 mg 08/07/20 12:08/07/20 12:25 Tylenol Extra Strength PO 08/07/20 12:10 1,000 mg ONETIME ONE Administration Sodium Chloride 1,000 mls @ 999 mls/hr 08/07/20 12:08/07/20 12:24 Normal Saline IV 08/07/20 13:09 999 mls/hr .Bolus ONE Administration Ketorolac Tromethamine 15 mg 08/07/20 12:08/07/20 12:25 Toradol IVPUSH 08/07/20 12:10 15 mg ONETIME ONE Administration Ondansetron HCl 4 mg 08/07/20 12:09 08/07/20 12:25 Zofran IVPUSH 08/07/20 12:10 4 mg ONETIME ONE Administration - Re-Assessments/Exams Free Text/Narrative Re-Assessment/Exam: 08/07/20 12:34 Will get labs/imaging/EKG, will treat symptomatically, anticipate d/c home. 08/07/20 13:38 D-dimer is elevated; will get CTA to r/o PE 08/07/20 15:46 CTA is negative for PE; there are ground glass opacities consistent with patient's history of COVID-19. Will d/c with return precautions and instructiosn for tylenol/motrin use. PMD f/u Departure - Departure Time of Disposition: 15:46 Disposition: Home, Self-Care 01 Condition: Good Clinical Impression: COVID-19 - Discharge Information Instructions: COVID-19: How to Protect Yourself and Others - [facility], COVID-19 Frequently Asked Questions Referrals: PCP,None [Primary Care Provider] - Forms: ED Department Discharge Additional Instructions: The following information is given to patients seen in the emergency department who are being discharged to home. This information is to outline your options for follow-up care. We provide all patients seen in our emergency department with a follow-up referral. The need for follow-up, as well as the timing and circumstances, are variable depending upon the specifics of your emergency department visit. If you don't have a primary care physician on staff, we will provide you with a referral. We always advise you to contact your personal physician following an emergency department visit to inform them of the circumstance of the visit and for follow-up with them and/or the need for any referrals to a consulting specialist. The emergency department will also refer you to a specialist when appropriate. This referral assures that you have the opportunity for follow-up care with a specialist. All of these measure are taken in an effort to provide you with optimal care, which includes your follow-up. Under all circumstances we always encourage you to contact your private physician who remains a resource for coordinating your care. When calling for follow-up care, please make the office aware that this follow-up is from your recent emergency room visit. If for any reason you are refused follow-up, please contact the [facility] Emergency Department at and asked to speak to the emergency department charge nurse. Please follow up with your primary care physician. If you do not have a primary care physician, see below: [facility] [address] [place], [place] [id number] [facility] [address] [place] [address] Sepsis Event Note (ED) - Focused Exam Vital Signs: Vital Signs Temp Temp Pulse Resp BP Pulse Ox 08/07/20 12:25 99.4 F 08/07/20 12:00 99.3 F 67 18 131/67 94 L - My Orders Last 24 Hours: My Active Orders 08/07/20 12:09 Cardiac Monitoring [RC] . DIRECTED EKG Documentation Completion [RC] STAT Pulse Oximetry [RC] ASDIRECTED Sodium Chloride 0.9% [Saline Flush] 10 ml FLUSH ASDIRECTED PRN Sodium Chloride 0.9% [Saline Flush] 2.5 ml FLUSH ASDIRECTED PRN Saline Lock Insert [OM.PC] Stat - Assessment/Plan Last 24 Hours: My Active Orders 08/07/20 12:09 Cardiac Monitoring [RC] . DIRECTED EKG Documentation Completion [RC] STAT Pulse Oximetry [RC] ASDIRECTED Sodium Chloride 0.9% [Saline Flush] 10 ml FLUSH ASDIRECTED PRN Sodium Chloride 0.9% [Saline Flush] 2.5 ml FLUSH ASDIRECTED PRN Saline Lock Insert [OM.PC] Stat
[2020-08-07] MEDS ORDERED: Ondansetron 4 MG/2 ML SDV IVPUSH ONE (12:09)
[2020-08-07] MEDS ORDERED: Acetaminophen 500 MG Tab PO ONE (12:09)
[2020-08-07] MEDS ORDERED: Sodium Chloride 0.9% 1,000 ML IV ONE (12:09)
[2020-08-07] MEDS ORDERED: Sodium Chloride 0.9% 2.5 ML Syringe FLUSH PRN (12:09)
[2020-08-07] MEDS ORDERED: Sodium Chloride 0.9% 10 ML Syringe FLUSH PRN (12:09)
[2020-08-07] MEDS ORDERED: Ketorolac 15 MG/ML SDV IVPUSH ONE (12:09)
--- NOTE | 2020-08-07 12:59 | CR ---
INDICATION: COVID TECHNIQUE: Chest 1 view. COMPARISON: 08/02/2020 FINDINGS: Cardiovascular and mediastinum: Heart size and vasculature are normal in caliber and appearance. Mediastinum is within normal limits. Lungs and pleural space: Patchy right lower lobe airspace opacity. No sign of pleural effusion. No pneumothorax. Bones and soft tissues: No significant findings. IMPRESSION: Patchy right lower lobe airspace opacity possibly related to COVID. This was not present on 08/02/2020. Dictated by Alex Banegas MD @ Aug 07 2020 12:58PM Signed by Dr. Alex Banegas @ Aug 07 2020 12:59PM
[2020-08-07 13:39] LABS: BLOOD UREA NITROGEN,BUN 21 mg/dL (7.0-18.0); CARBON DIOXIDE,CO2 28.9 mmol/L (21.0-32.0); CHLORIDE,CL 103 mmol/L (98-107); GLUCOSE RANDOM 126 mg/dL (74-106); POTASSIUM,K 3.7 mmol/L (3.5-5.1); SODIUM,NA 140 mmol/L (136-145)
--- NOTE | 2020-08-07 15:45 | CT ---
INDICATION: Shortness of breath, COVID positive TECHNIQUE: CT chest pulmonary PE protocol acquired with 75 cc Isovue 370 IV contrast. COMPARISON: Chest radiographs from August 07 and August 02, 2020 FINDINGS: Cardiovascular structures: Normal vascular enhancement of the pulmonary arteries, no sign of pulmonary embolism. Heart size is normal. No sign of aneurysm in the thoracic aorta. Mediastinum and ruth: No mass or adenopathy. Lungs: Patchy, predominantly peripheral ground-glass opacities throughout both lungs. Pleura and pericardium: No effusions. Chest wall and axilla: No mass or adenopathy. Upper abdomen: Unremarkable. Bones: No significant findings. IMPRESSION: No pulmonary embolism. Patchy bilateral ground-glass opacities consistent with history COVID-19. Please note that all CT scans at this facility use dose modulation, iterative reconstruction, and/or weight-based dosing when appropriate to reduce radiation dose to as low as reasonably achievable. Dictated by Ilda Cason MD @ Aug 07 2020 3:44PM Signed by Dr. Ilda Cason @ Aug 07 2020 3:44PM
[2020-08-07] MEDS ORDERED: Iopamidol 755 MG/ML 500 ML Multipack Bottle IVPUSH STA (19:03)
[2020-08-07 20:34] VITALS: BP 130/74; PULSE 66
== END 2020-08-07 16:15 | disposition home or self-care (01) ==
LOC: MW.ED 11:41
DX: U07.1 COVID-19 (principal); I10 Essential (primary) hypertension; F32.9 Major depressive disorder, single episode, unspecified; E05.90 Thyrotoxicosis, unspecified without thyrotoxic crisis or storm; Z79.82 Long term (current) use of aspirin; Z79.899 Other long term (current) drug therapy
CPT/HCPCS: 36415; 71045; 71275; 80053; 83605; 83735; 83880; 84484; 85025; 85379; 85610; 85730; 86140; 93005; 96361; 96374; 96375; 99285; A9270; J1885; J2405; J7030; Q9967

== ENCOUNTER 2020-08-07 20:01 | Inpatient (IN) | payer MEDICARE, OTHER ==
[2020-08-07] MEDS ORDERED: REMDESIVIR 200 MG in Sodium Chloride 0.9% 250 ML IV ONE (20:36)
[2020-08-07] MEDS ORDERED: Dexamethasone 10 MG/ML SDV IVPUSH ONE (20:36)
[2020-08-07] MEDS ORDERED: Sodium Chloride 0.9% 10 ML Syringe FLUSH PRN (20:37)
[2020-08-07] MEDS ORDERED: Sodium Chloride 0.9% 2.5 ML Syringe FLUSH PRN (20:37)
[2020-08-07] MEDS ORDERED: Sodium Chloride 0.9% 2,000 ML IV ONE (20:37)
[2020-08-07] MEDS ORDERED: Prochlorperazine 10 MG/2 ML SDV IVPUSH ONE (21:01)
--- NOTE | 2020-08-07 21:08 | EDM.PDOC ---
ED HPI GENERAL MEDICAL PROBLEM - General Chief Complaint: General Stated Complaint: GENERAL WEAKNESS Time Seen by Provider: 08/07/20 20:20 - History of Present Illness INITIAL COMMENTS - FREE TEXT/NARRATIVE: HISTORY AND PHYSICAL: History of present illness: This 69-year-old female returns emergency department unable to take care of herself and unable to hydrate/eat at home. She is too weak to move around and family says that they can no longer take care of her. She has known COVID-19 and is not doing well at home. She has GI symptoms and body aches and generalized weakness and feels dehydrated. Review of systems: A 10-point review of systems, other than pertinent positives and negatives as stated per HPI, is otherwise negative. Past medical history: As per history of present illness and as reviewed below otherwise noncontributory. Surgical history: As per history of present illness and as reviewed below otherwise noncontributory. Social history: No reported history of drug or alcohol abuse. Family history: As per history of present illness and as reviewed below otherwise noncontributory. Physical exam: VITAL SIGNS: Reviewed. GENERAL: Appears weak and dehydrated. HEAD: No signs of head trauma. EYES: Pupils are equal. Extraocular motions intact. EARS: Hearing grossly intact. MOUTH: Dry mucous membranes. NECK: No adenopathy, no JVD. CHEST: Chest with clear breath sounds bilaterally. No wheezes, rales, or rhonchi. CARDIAC: Regular rate and rhythm. Normal S1 and S2, without murmurs, gallops, or rubs. VASCULAR: Peripheral pulses normal and equal in all extremities. ABDOMEN: Soft, without detectable tenderness. No sign of distention. No rebound or guarding, and no masses palpated. MUSCULOSKELETAL: Good range of motion of all major joints. Extremities without clubbing, cyanosis or edema. NEUROLOGIC EXAM: Alert and oriented x 3. No focal sensory or motor deficits. Speech normal. Follows commands. PSYCHIATRIC: Mood normal. SKIN: No rash or lesions. Initial Differential Diagnosis & Plan: COVID-19 infection, dehydration, metabolic abnormality No evidence of significant hypoxemia. Given her COVID-19 infection and recent admission it is likely she will need to come in again. Apparently she is unable to take care of herself at home. I will initiate treatment with Decadron, medications, and it appears she only had 2 days of Remdesivir while admitted. I will contact the hospitalist for admission. My diagnostic impression 1. COVID-19 infection 2. Dehydration Admit to inpatient setting - Related Data Allergies Allergy/AdvReac Type Severity Reaction Status Date / Time cephalexin monohydrate Allergy Hives Verified 08/07/20 20:33 [From Kef[employer]] Home Meds: Home Meds Multivitamin with Minerals [Multiple Vitamin] 1 tab PO DAILY 09/03/15 [History] PARoxetine [Paxil] 20 mg PO DAILY 09/03/15 [History] Aspirin 81 mg PO DAILY 05/26/19 [History] Calcium Carbonate/Vitamin D3 [Calcium 250+D] 1 each PO DAILY 07/29/20 [History] Levothyroxine 112 mcg PO ACBREAKFAST 08/03/20 [History] Midodrine 5 mg PO DAILY 08/03/20 [History] Midodrine 5 mg PO BID PRN 08/05/20 [History] dexAMETHasone [Decadron] 6 mg PO DAILY #7 tablet 08/06/20 [Rx] Past Medical History Cardiovascular History: Reports: Hypertension Other Cardiovascular History: Mitral valve prolapse Musculoskeletal History: Reports: Other (See Below) Other Musculoskeletal History: TMJ Psychiatric History: Reports: Depression Endocrine/Metabolic History: Reports: Hyperthyroidism - Infectious Disease History Infectious Disease History: Reports: Chicken Pox, Influenza, Measles, Mumps, Novel Coronavirus - Past Surgical History HEENT Surgical History: Reports: Cataract Surgery, Eye Surgery, LASIK Female Surgical History: Reports: Breast Biopsy, Hysterectomy Social & Family History - Family History Family Medical History: Noncontributory - Tobacco Use Smoking Status *Q: Unknown Ever Smoked - Caffeine Use Caffeine Use: Reports: None ED ROS GENERAL - Review of Systems Review Of Systems: See Below (noted) ED EXAM, GENERAL - Physical Exam Exam: See Below (noted) Course - Vital Signs Last Recorded V/S: Last Vital Signs Temp 97.3 F 08/07/20 20:01 Pulse 60 08/07/20 21:40 Resp 18 08/07/20 21:40 BP 131/60 08/07/20 21:40 Pulse Ox 96 08/07/20 21:40 - Orders/Labs/Meds Orders: Active Orders 24 hr Category Date Time Status Patient Status [ADT] Routine ADT 08/07/20 21:20 Active Blood Pressure Mgt: Sepsis [RC] Q15MX2 Care 08/07/20 20:37 Active Cardiac Monitoring [RC] CONTINUOUS Care 08/07/20 20:38 Active EKG Documentation Completion [RC] STAT Care 08/07/20 20:37 Active Overnight Pulse Oximetry [RC] Click to Edit Care 08/07/20 20:39 Active Chest 2V [CR] Stat Exams 08/07/20 20:37 Taken CULTURE BLOOD [BC] Stat Lab 08/07/20 20:37 Ordered CULTURE BLOOD [BC] Stat Lab 08/07/20 20:55 Received UA W/MICROSCOPIC [URIN] Stat Lab 08/07/20 20:37 Ordered Sodium Chloride 0.9% [Saline Flush] Med 08/07/20 20:37 Active 10 ml FLUSH ASDIRECTED PRN Sodium Chloride 0.9% [Saline Flush] Med 08/07/20 20:37 Active 2.5 ml FLUSH ASDIRECTED PRN Blood Culture x2 Reflex Set [OM.PC] Stat Oth 08/07/20 20:37 Ordered Isolation [COMM] Stat Oth 08/07/20 20:41 Active Pulse Oximetry Continuous Monitoring [OM.PC] Routine Oth 08/07/20 20:37 Ordered Saline Lock Insert [OM.PC] Stat Oth 08/07/20 20:37 Ordered Severe Sepsis Onset Time [OM.PC] Stat Oth 08/07/20 20:37 Ordered Medication Orders Sodium Chloride (Saline Flush) 10 ml FLUSH ASDIRECTED PRN PRN Reason: Keep Vein Open Sodium Chloride (Saline Flush) 2.5 ml FLUSH ASDIRECTED PRN PRN Reason: Keep Vein Open Labs: Laboratory Tests 08/07/20 08/07/20 08/07/20 Range/Units 20:55 20:55 20:55 WBC 9.79 (4.0-11.0) K/uL RBC 4.12 L (4.30-5.90) M/uL Hgb 12.3 (12.0-16.0) g/dL Hct 37.2 (36.0-46.0) % MCV 90.3 (80.0-98.0) fL MCH 29.9 (27.0-32.0) pg MCHC 33.1 (31.0-37.0) g/dL RDW Std Deviation 45.4 (28.0-62.0) fl RDW Coeff of Desiree 14 (11.0-15.0) % Plt Count 404 H (150-400) K/uL MPV 9.80 (7.40-12.00) fL Neut % (Auto) 86.6 H (48.0-80.0) % Lymph % (Auto) 7.2 L (16.0-40.0) % [place] % (Auto) 6.1 (0.0-15.0) % Eos % (Auto) 0.0 (0.0-7.0) % Baso % (Auto) 0.1 (0.0-1.5) % Neut # (Auto) 8.5 H (1.4-5.7) K/uL Lymph # (Auto) 0.7 (0.6-2.4) K/uL [place] # (Auto) 0.6 (0.0-0.8) K/uL Eos # (Auto) 0.0 (0.0-0.7) K/uL Baso # (Auto) 0.0 (0.0-0.1) K/uL Nucleated RBC % 0.0 /100WBC Nucleated RBCs # 0 K/uL INR 1.17 APTT 27.4 (18.6-31.3) SEC ABG pH (7.35-7.45) ABG pCO2 (35-45) mmHG ABG pO2 (75-100) mmHG ABG HCO3 (22-26) mEq/L ABG Total CO2 ABG Base Excess (-2.0-2.0) Lactate 1.1 (0.20-2.00) mmol/L Sodium (136-145) mmol/L Potassium (3.5-5.1) mmol/L Chloride (98-107) mmol/L Carbon Dioxide (21.0-32.0) mmol/L BUN (7.0-18.0) mg/dL Creatinine (0.6-1.0) mg/dL Est Cr Clr Drug Dosing Estimated GFR (MDRD) ml/min Glucose (74-106) mg/dL Calcium (8.5-10.1) mg/dL Total Bilirubin (0.2-1.0) mg/dL AST (15-37) IU/L ALT (14-63) IU/L Alkaline Phosphatase (46-116) U/L Troponin I (0.000-0.056) ng/mL C-Reactive Protein (0.00-0.90) mg/dL Total Protein (6.4-8.2) g/dL Albumin (3.4-5.0) g/dL Globulin (2.6-4.0) g/dL Albumin/Globulin Ratio (0.9-1.6) 08/07/20 08/07/20 Range/Units 20:55 21:25 WBC (4.0-11.0) K/uL RBC (4.30-5.90) M/uL Hgb (12.0-16.0) g/dL Hct (36.0-46.0) % MCV (80.0-98.0) fL MCH (27.0-32.0) pg MCHC (31.0-37.0) g/dL RDW Std Deviation (28.0-62.0) fl RDW Coeff of Desiree (11.0-15.0) % Plt Count (150-400) K/uL MPV (7.40-12.00) fL Neut % (Auto) (48.0-80.0) % Lymph % (Auto) (16.0-40.0) % [place] % (Auto) (0.0-15.0) % Eos % (Auto) (0.0-7.0) % Baso % (Auto) (0.0-1.5) % Neut # (Auto) (1.4-5.7) K/uL Lymph # (Auto) (0.6-2.4) K/uL [place] # (Auto) (0.0-0.8) K/uL Eos # (Auto) (0.0-0.7) K/uL Baso # (Auto) (0.0-0.1) K/uL Nucleated RBC % /100WBC Nucleated RBCs # K/uL INR APTT (18.6-31.3) SEC ABG pH 7.463 H (7.35-7.45) ABG pCO2 37 (35-45) mmHG ABG pO2 75 (75-100) mmHG ABG HCO3 27 H (22-26) mEq/L ABG Total CO2 24.2 ABG Base Excess 3.0 H (-2.0-2.0) Lactate (0.20-2.00) mmol/L Sodium 139 (136-145) mmol/L Potassium 3.8 (3.5-5.1) mmol/L Chloride 103 (98-107) mmol/L Carbon Dioxide 27.1 (21.0-32.0) mmol/L BUN 18 (7.0-18.0) mg/dL Creatinine 1.0 (0.6-1.0) mg/dL Est Cr Clr Drug Dosing TNP Estimated GFR (MDRD) 55.0 ml/min Glucose 136 H (74-106) mg/dL Calcium 8.2 L (8.5-10.1) mg/dL Total Bilirubin 0.4 (0.2-1.0) mg/dL AST 72 H (15-37) IU/L ALT 72 H (14-63) IU/L Alkaline Phosphatase 49 (46-116) U/L Troponin I 0.050 (0.000-0.056) ng/mL C-Reactive Protein 2.10 H (0.00-0.90) mg/dL Total Protein 6.3 L (6.4-8.2) g/dL Albumin 2.8 L (3.4-5.0) g/dL Globulin 3.5 (2.6-4.0) g/dL Albumin/Globulin Ratio 0.8 L (0.9-1.6) Meds: Medications Generic Name Dose Route Start Last Admin Trade Name Freq PRN Reason Stop Dose Admin Sodium Chloride 10 ml 08/07/20 20:37 Saline Flush FLUSH ASDIRECTED PRN Keep Vein Open Sodium Chloride 2.5 ml 08/07/20 20:37 Saline Flush FLUSH ASDIRECTED PRN Keep Vein Open Discontinued Medications Generic Name Dose Route Start Last Admin Trade Name Freq PRN Reason Stop Dose Admin Dexamethasone 10 mg 08/07/20 20:36 08/07/20 21:26 Dexamethasone IVPUSH 08/07/20 20:37 10 mg ONETIME ONE Administration Remdesivir 200 mg/ Sodium 250 mls @ 250 mls/hr 08/07/20 20:36 Chloride IV 08/07/20 20:37 ONETIME ONE Sodium Chloride 2,000 mls @ 2,000 mls/hr 08/07/20 20:37 08/07/20 20:57 Normal Saline IV 08/07/20 21:36 2,000 mls/hr BOLUS ONE Administration Protocol Prochlorperazine Edisylate 10 mg 08/07/20 21:01 08/07/20 21:27 Compazine IVPUSH 08/07/20 21:02 10 mg ONETIME ONE Administration Departure - Departure Time of Disposition: 21:07 Disposition: Admitted As Inpatient 66 Clinical Impression: COVID-19 - Discharge Information *PRESCRIPTION DRUG MONITORING PROGRAM REVIEWED*: Not Applicable *COPY OF PRESCRIPTION DRUG MONITORING REPORT IN PATIENT TIERA: Not Applicable Sepsis Event Note (ED) - Evaluation Sepsis Screening Result: No Definite Risk - Focused Exam Vital Signs: Vital Signs Temp Pulse Resp BP Pulse Ox 08/07/20 20:59 63 18 122/57 L 97 08/07/20 20:01 97.3 F 86 16 120/67 98 - My Orders Last 24 Hours: My Active Orders 08/07/20 20:37 Blood Pressure Mgt: Sepsis [RC] Q15MX2 EKG Documentation Completion [RC] STAT Chest 2V [CR] Stat CULTURE BLOOD [BC] Stat UA W/MICROSCOPIC [URIN] Stat Sodium Chloride 0.9% [Saline Flush] 10 ml FLUSH ASDIRECTED PRN Sodium Chloride 0.9% [Saline Flush] 2.5 ml FLUSH ASDIRECTED PRN Blood Culture x2 Reflex Set [OM.PC] Stat Pulse Oximetry Continuous Monitoring [OM.PC] Routine Saline Lock Insert [OM.PC] Stat Severe Sepsis Onset Time [OM.PC] Stat 08/07/20 20:38 Cardiac Monitoring [RC] CONTINUOUS 08/07/20 20:39 Overnight Pulse Oximetry [RC] Click to Edit 08/07/20 20:41 Isolation [COMM] Stat 08/07/20 20:55 CULTURE BLOOD [BC] Stat 08/07/20 21:20 Patient Status [ADT] Routine - Assessment/Plan Last 24 Hours: My Active Orders 08/07/20 20:37 Blood Pressure Mgt: Sepsis [RC] Q15MX2 EKG Documentation Completion [RC] STAT Chest 2V [CR] Stat CULTURE BLOOD [BC] Stat UA W/MICROSCOPIC [URIN] Stat Sodium Chloride 0.9% [Saline Flush] 10 ml FLUSH ASDIRECTED PRN Sodium Chloride 0.9% [Saline Flush] 2.5 ml FLUSH ASDIRECTED PRN Blood Culture x2 Reflex Set [OM.PC] Stat Pulse Oximetry Continuous Monitoring [OM.PC] Routine Saline Lock Insert [OM.PC] Stat Severe Sepsis Onset Time [OM.PC] Stat 08/07/20 20:38 Cardiac Monitoring [RC] CONTINUOUS 08/07/20 20:39 Overnight Pulse Oximetry [RC] Click to Edit 08/07/20 20:41 Isolation [COMM] Stat 08/07/20 20:55 CULTURE BLOOD [BC] Stat 08/07/20 21:20 Patient Status [ADT] Routine
[2020-08-07 21:38] LABS: BLOOD UREA NITROGEN,BUN 18 mg/dL (7.0-18.0); CARBON DIOXIDE,CO2 27.1 mmol/L (21.0-32.0); CHLORIDE,CL 103 mmol/L (98-107); GLUCOSE RANDOM 136 mg/dL (74-106); POTASSIUM,K 3.8 mmol/L (3.5-5.1); SODIUM,NA 139 mmol/L (136-145)
--- NOTE | 2020-08-07 21:58 | PCM.SN.2 ---
- Free Text/Narrative Note: 12 lead EKG interpretation Obtained: August 07, 2020 at 2137 Rhythm: Sinus bradycardia Rate: 58 [place]: Normal Intervals: Normal ST/T Segments: No acute ischemic changes Interpretation: Sinus bradycardia
--- NOTE | 2020-08-07 22:16 | CR ---
INDICATION: COVID infection TECHNIQUE: Chest 1 view. COMPARISON: 08/07/2020 FINDINGS: Cardiovascular and mediastinum: Heart size and vasculature are normal in caliber and appearance. Mediastinum is within normal limits. Lungs and pleural space: Right midlung and right lower lobe airspace opacities. No sign of pleural effusion. No pneumothorax. Bones and soft tissues: No significant findings. IMPRESSION: Right midlung and right lower lobe airspace opacities consistent with the patient`s known COVID infection. Dictated by Alex Banegas MD @ Aug 07 2020 10:11PM Signed by Dr. Alex Banegas @ Aug 07 2020 10:14PM
[2020-08-07] MEDS ORDERED: Ondansetron 4 MG/2 ML SDV IVPUSH PRN (23:52)
[2020-08-07] MEDS ORDERED: Acetaminophen 325 MG Tab PO PRN (23:52)
[2020-08-08] MEDS: REMDESIVIR 100 MG in Sodium Chloride 0.9% 100 ML IV SCH ×2 (00:45→05:01)
[2020-08-08] MEDS: Enoxaparin 40 MG/0.4 ML Syringe SUBCUT SCH (01:05)
--- NOTE | 2020-08-08 01:31 | PCM.HP.2 ---
H&P History of Present Illness - General Date of Service: 08/08/20 Admit Problem/Dx: Admission Diagnosis/Problem Admission Diagnosis/Problem Viral infection - History of Present Illness Initial Comments - Free Text/Narative: 69 yo female who was discharged two days ago after being hospitalized for COVID. She was treated with dexamethasone and Remdesivir for two days. AT home she describes generalized weakness. She does report nausea and poor apatite. brought her to the ER and was concerned that she is not able to take care of herself at home. PAtient denies any fever, chills, shortness of breath, or diarrhea. - Related Data Allergies/Adverse Reactions: Allergies Allergy/AdvReac Type Severity Reaction Status Date / Time cephalexin monohydrate Allergy Hives Verified 08/08/20 01:28 [From [employer]] Home Medications: Home Meds Multivitamin with Minerals [Multiple Vitamin] 1 tab PO DAILY 09/03/15 [History] PARoxetine [Paxil] 20 mg PO DAILY 09/03/15 [History] Aspirin 81 mg PO DAILY 05/26/19 [History] Calcium Carbonate/Vitamin D3 [Calcium 250+D] 1 each PO DAILY 07/29/20 [History] Levothyroxine 20 mg PO ACBREAKFAST 08/03/20 [History] Midodrine 5 mg PO DAILY 08/03/20 [History] Midodrine 5 mg PO BID PRN 08/05/20 [History] dexAMETHasone [Decadron] 6 mg PO DAILY #7 tablet 08/06/20 [Rx] Past Medical History Cardiovascular History: Reports: Hypertension Other Cardiovascular History: Mitral valve prolapse Musculoskeletal History: Reports: Other (See Below) Other Musculoskeletal History: TMJ Psychiatric History: Reports: Depression Endocrine/Metabolic History: Reports: Hyperthyroidism - Infectious Disease History Infectious Disease History: Reports: Chicken Pox, Influenza, Measles, Mumps, Novel Coronavirus - Past Surgical History HEENT Surgical History: Reports: Cataract Surgery, Eye Surgery, LASIK Female Surgical History: Reports: Breast Biopsy, Hysterectomy Social & Family History - Family History Family Medical History: Noncontributory - Tobacco Use Smoking Status *Q: Never Smoker Second Hand Smoke Exposure: No - Caffeine Use Caffeine Use: Reports: None - Recreational Drug Use Recreational Drug Use: No H&P Review of Systems - Review of Systems: Review Of Systems: Comprehensive ROS is negative, except as noted in HPI. Exam - Exam Exam: See Below - Vital Signs Vital Signs: Last Vital Signs Temp 36.1 C 08/08/20 00:00 Pulse 60 08/08/20 00:00 Resp 16 08/08/20 00:00 BP 141/64 H 08/08/20 00:00 Pulse Ox 96 08/08/20 00:00 Weight: 60.192 kg - Exam General: Alert, Oriented HEENT: Mucosa Moist & [place] Neck: Supple, Trachea Midline Lungs: Clear to Auscultation, Normal Respiratory Effort Cardiovascular: Regular Rate, Regular Rhythm GI/Abdominal Exam: Normal Bowel Sounds, Soft, Non-Tender Extremities: Non-Tender, No Pedal Edema Skin: Warm, Dry, Intact Neurological: No: Focal Deficit - Patient Data Lab Results Last 24 hrs: Laboratory Results - last 24 hr 08/07/20 08/07/20 08/07/20 Range/Units 20:55 20:55 20:55 WBC 9.79 (4.0-11.0) K/uL RBC 4.12 L (4.30-5.90) M/uL Hgb 12.3 (12.0-16.0) g/dL Hct 37.2 (36.0-46.0) % MCV 90.3 (80.0-98.0) fL MCH 29.9 (27.0-32.0) pg MCHC 33.1 (31.0-37.0) g/dL RDW Std Deviation 45.4 (28.0-62.0) fl RDW Coeff of Desiree 14 (11.0-15.0) % Plt Count 404 H (150-400) K/uL MPV 9.80 (7.40-12.00) fL Neut % (Auto) 86.6 H (48.0-80.0) % Lymph % (Auto) 7.2 L (16.0-40.0) % [place] % (Auto) 6.1 (0.0-15.0) % Eos % (Auto) 0.0 (0.0-7.0) % Baso % (Auto) 0.1 (0.0-1.5) % Neut # (Auto) 8.5 H (1.4-5.7) K/uL Lymph # (Auto) 0.7 (0.6-2.4) K/uL [place] # (Auto) 0.6 (0.0-0.8) K/uL Eos # (Auto) 0.0 (0.0-0.7) K/uL Baso # (Auto) 0.0 (0.0-0.1) K/uL Nucleated RBC % 0.0 /100WBC Nucleated RBCs # 0 K/uL INR 1.17 APTT 27.4 (18.6-31.3) SEC ABG pH (7.35-7.45) ABG pCO2 (35-45) mmHG ABG pO2 (75-100) mmHG ABG HCO3 (22-26) mEq/L ABG Total CO2 ABG Base Excess (-2.0-2.0) Lactate 1.1 (0.20-2.00) mmol/L Sodium (136-145) mmol/L Potassium (3.5-5.1) mmol/L Chloride (98-107) mmol/L Carbon Dioxide (21.0-32.0) mmol/L BUN (7.0-18.0) mg/dL Creatinine (0.6-1.0) mg/dL Est Cr Clr Drug Dosing Estimated GFR (MDRD) ml/min Glucose (74-106) mg/dL Calcium (8.5-10.1) mg/dL Total Bilirubin (0.2-1.0) mg/dL AST (15-37) IU/L ALT (14-63) IU/L Alkaline Phosphatase (46-116) U/L Troponin I (0.000-0.056) ng/mL C-Reactive Protein (0.00-0.90) mg/dL Total Protein (6.4-8.2) g/dL Albumin (3.4-5.0) g/dL Globulin (2.6-4.0) g/dL Albumin/Globulin Ratio (0.9-1.6) Urine Color Urine Appearance Urine pH (5.0-8.0) Ur Specific [place] (1.001-1.035) Urine Protein (NEGATIVE) mg/dL Urine Glucose (UA) (NEGATIVE) mg/dL Urine Ketones (NEGATIVE) mg/dL Urine Occult Blood (NEGATIVE) Urine Nitrite (NEGATIVE) Urine Bilirubin (NEGATIVE) Urine Urobilinogen (<2.0) EU/dL Ur Leukocyte Esterase (NEGATIVE) Urine RBC (0-2/HPF) Urine WBC (0-5/HPF) Ur Epithelial Cells (NONE-FEW) Urine Bacteria (NEGATIVE) Urine Mucus (NONE-MOD) 08/07/20 08/07/20 08/07/20 Range/Units 20:55 21:25 22:08 WBC (4.0-11.0) K/uL RBC (4.30-5.90) M/uL Hgb (12.0-16.0) g/dL Hct (36.0-46.0) % MCV (80.0-98.0) fL MCH (27.0-32.0) pg MCHC (31.0-37.0) g/dL RDW Std Deviation (28.0-62.0) fl RDW Coeff of Desiree (11.0-15.0) % Plt Count (150-400) K/uL MPV (7.40-12.00) fL Neut % (Auto) (48.0-80.0) % Lymph % (Auto) (16.0-40.0) % [place] % (Auto) (0.0-15.0) % Eos % (Auto) (0.0-7.0) % Baso % (Auto) (0.0-1.5) % Neut # (Auto) (1.4-5.7) K/uL Lymph # (Auto) (0.6-2.4) K/uL [place] # (Auto) (0.0-0.8) K/uL Eos # (Auto) (0.0-0.7) K/uL Baso # (Auto) (0.0-0.1) K/uL Nucleated RBC % /100WBC Nucleated RBCs # K/uL INR APTT (18.6-31.3) SEC ABG pH 7.463 H (7.35-7.45) ABG pCO2 37 (35-45) mmHG ABG pO2 75 (75-100) mmHG ABG HCO3 27 H (22-26) mEq/L ABG Total CO2 24.2 ABG Base Excess 3.0 H (-2.0-2.0) Lactate (0.20-2.00) mmol/L Sodium 139 (136-145) mmol/L Potassium 3.8 (3.5-5.1) mmol/L Chloride 103 (98-107) mmol/L Carbon Dioxide 27.1 (21.0-32.0) mmol/L BUN 18 (7.0-18.0) mg/dL Creatinine 1.0 (0.6-1.0) mg/dL Est Cr Clr Drug Dosing TNP Estimated GFR (MDRD) 55.0 ml/min Glucose 136 H (74-106) mg/dL Calcium 8.2 L (8.5-10.1) mg/dL Total Bilirubin 0.4 (0.2-1.0) mg/dL AST 72 H (15-37) IU/L ALT 72 H (14-63) IU/L Alkaline Phosphatase 49 (46-116) U/L Troponin I 0.050 (0.000-0.056) ng/mL C-Reactive Protein 2.10 H (0.00-0.90) mg/dL Total Protein 6.3 L (6.4-8.2) g/dL Albumin 2.8 L (3.4-5.0) g/dL Globulin 3.5 (2.6-4.0) g/dL Albumin/Globulin Ratio 0.8 L (0.9-1.6) Urine Color YELLOW Urine Appearance CLEAR Urine pH 6.0 (5.0-8.0) Ur Specific [place] 1.010 (1.001-1.035) Urine Protein NEGATIVE (NEGATIVE) mg/dL Urine Glucose (UA) NEGATIVE (NEGATIVE) mg/dL Urine Ketones NEGATIVE (NEGATIVE) mg/dL Urine Occult Blood NEGATIVE (NEGATIVE) Urine Nitrite NEGATIVE (NEGATIVE) Urine Bilirubin NEGATIVE (NEGATIVE) Urine Urobilinogen 1.0 (<2.0) EU/dL Ur Leukocyte Esterase NEGATIVE (NEGATIVE) Urine RBC NONE SEEN (0-2/HPF) Urine WBC 0-3 (0-5/HPF) Ur Epithelial Cells FEW (NONE-FEW) Urine Bacteria RARE (NEGATIVE) Urine Mucus LIGHT (NONE-MOD) Result Diagrams: 08/08/20 06:04 08/08/20 06:04 Sepsis Event Note - Evaluation Sepsis Screening Result: No Definite Risk - Focused Exam Vital Signs: Vital Signs Temp Pulse Resp BP Pulse Ox 08/08/20 00:00 36.1 C 60 16 141/64 H 96 08/07/20 21:40 60 18 131/60 96 08/07/20 20:59 63 18 122/57 L 97 08/07/20 20:01 36.3 C 86 16 120/67 98 Problem List Initiated/Reviewed/Updated: Yes Orders Last 24hrs: Active Orders 24 hr Category Date Time Status Patient Status [ADT] Routine ADT 08/07/20 21:20 Active Antiembolic Devices [RC] PER UNIT ROUTINE Care 08/07/20 23:53 Active Blood Pressure Mgt: Sepsis [RC] Q15MX2 Care 08/07/20 20:37 Active EKG Documentation Completion [RC] STAT Care 08/07/20 20:37 Active Overnight Pulse Oximetry [RC] Click to Edit Care 08/07/20 20:39 Active Oxygen Therapy [RC] PRN Care 08/07/20 23:52 Active Telemetry Monitoring [Cardiac Monitoring] [RC] . Care 08/07/20 22:02 Active DIRECTED Up ad [place] [RC] ASDIRECTED Care 08/07/20 23:52 Active VTE/DVT Education [RC] PER UNIT ROUTINE Care 08/07/20 23:52 Active Vital Signs [RC] Q4H Care 08/07/20 23:52 Active Regular Diet [DIET] Diet 08/07/20 Breakfast Active CBC WITH AUTO DIFF [HEME] AM Lab 08/08/20 05:11 Ordered CBC WITH AUTO DIFF [HEME] AM Lab 08/09/20 05:11 Ordered COMPREHENSIVE METABOLIC PN,CMP [CHEM] AM Lab 08/08/20 05:11 Ordered COMPREHENSIVE METABOLIC PN,CMP [CHEM] AM Lab 08/09/20 05:11 Ordered CULTURE BLOOD [BC] Stat Lab 08/07/20 20:55 Received CULTURE BLOOD [BC] Stat Lab 08/07/20 21:35 Received Acetaminophen [TylenoL] Med 08/07/20 23:52 Active 650 mg PO Q4H PRN Enoxaparin [Lovenox] Med 08/07/20 23:45 Active 40 mg SUBCUT Q24H Levothyroxine Med 08/08/20 07:30 Pending 112 mcg PO ACBREAKFAST Midodrine Med 08/08/20 09:00 Pending 5 mg PO DAILY Ondansetron [Zofran] Med 08/07/20 23:52 Active 4 mg IVPUSH Q4H PRN PARoxetine [Paxil] Med 08/08/20 09:00 Pending 20 mg PO DAILY Remdesivir (Eua) [Remdesivir (EUA)] 100 mg Med 08/08/20 00:00 Active Sodium Chloride 0.9% [Normal Saline] 100 ml IV Q24H Sodium Chloride 0.9% [Saline Flush] Med 08/07/20 20:37 Active 10 ml FLUSH ASDIRECTED PRN Sodium Chloride 0.9% [Saline Flush] Med 08/07/20 20:37 Active 2.5 ml FLUSH ASDIRECTED PRN dexAMETHasone Med 08/08/20 09:00 Active 6 mg PO DAILY Blood Culture x2 Reflex Set [OM.PC] Stat Ot 08/07/20 20:37 Ordered Isolation [COMM] Stat Ot 08/07/20 20:41 Active Pulse Oximetry Continuous Monitoring [OM.PC] Routine Ot 08/07/20 20:37 Ordered Saline Lock Insert [OM.PC] Stat Ot 08/07/20 20:37 Ordered Sequential Compression Device [OM.PC] Per Unit Routine Ot 08/07/20 23:52 Ordered Severe Sepsis Onset Time [OM.PC] Stat Ot 08/07/20 20:37 Ordered Resuscitation Status Routine Resus Stat 08/07/20 23:52 Ordered Medication Orders Acetaminophen (Tylenol) 650 mg PO Q4H PRN PRN Reason: Pain (Mild 1-3)/fever Dexamethasone (Dexamethasone) 6 mg PO DAILY [facility] Enoxaparin Sodium (Lovenox) 40 mg SUBCUT Q24H [facility] Last Admin: 08/08/20 01:05 Dose: 40 mg Documented by: ARPAN Remdesivir 100 mg/ Sodium (Chloride) 100 mls @ 100 mls/hr IV Q24H [facility] Stop: 08/11/20 00:59 Levothyroxine Sodium (Levothyroxine) 112 mcg PO ACBREAKFAST [facility] Midodrine (Midodrine) 5 mg PO DAILY [facility] Ondansetron HCl (Zofran) 4 mg IVPUSH Q4H PRN PRN Reason: Nausea Paroxetine HCl (Paxil) 20 mg PO DAILY [facility] Sodium Chloride (Saline Flush) 10 ml FLUSH ASDIRECTED PRN PRN Reason: Keep Vein Open Sodium Chloride (Saline Flush) 2.5 ml FLUSH ASDIRECTED PRN PRN Reason: Keep Vein Open Assessment/Plan Comment:: 69 yo female admitted for COVID. Will resume remdesivir as she was hypoxic d uring her last admission. Will continue dexamethason and lovenox.
[2020-08-08] MEDS ORDERED: Midodrine 5 MG Tab PO PRN (05:14)
[2020-08-08 07:10] LABS: BLOOD UREA NITROGEN,BUN 16 mg/dL (7.0-18.0); CARBON DIOXIDE,CO2 26.9 mmol/L (21.0-32.0); CHLORIDE,CL 103 mmol/L (98-107); GLUCOSE RANDOM 172 mg/dL (74-106); POTASSIUM,K 4.3 mmol/L (3.5-5.1); SODIUM,NA 138 mmol/L (136-145)
[2020-08-08] MEDS: PARoxetine 20 MG Tab PO SCH (08:02)
[2020-08-08] MEDS: Levothyroxine 112 MCG Tab PO SCH (08:02)
[2020-08-08] MEDS: Dexamethasone 4 MG Tab PO SCH (09:59)
[2020-08-08] MEDS: Midodrine 5 MG Tab PO SCH (10:00)
[2020-08-08] MEDS ORDERED: Sodium Chloride 0.9% 500 ML IV SCH (12:45)
--- NOTE | 2020-08-08 12:52 | PCM.PN ---
- General Info Date of Service: 08/08/20 - Review of Systems Systems Review Comment:: reports poor apatite, and weakness, is walk to bathroom. - Patient Data Vitals - Most Recent: Last Vital Signs Temp 36.4 C 08/08/20 07:57 Pulse 58 L 08/08/20 07:57 Resp 14 08/08/20 07:57 BP 129/59 L 08/08/20 10:01 Pulse Ox 96 08/08/20 07:57 Weight - Most Recent: 60.192 kg I&O - Last 24 Hours: Intake & Output 08/07/20 08/08/20 08/08/20 22:59 06:59 14:59 Intake Total 300 Output Total 600 Balance -300 Lab Results Last 24 Hours: Laboratory Results - last 24 hr 08/07/20 08/07/20 08/07/20 Range/Units 20:55 20:55 20:55 WBC 9.79 (4.0-11.0) K/uL RBC 4.12 L (4.30-5.90) M/uL Hgb 12.3 (12.0-16.0) g/dL Hct 37.2 (36.0-46.0) % MCV 90.3 (80.0-98.0) fL MCH 29.9 (27.0-32.0) pg MCHC 33.1 (31.0-37.0) g/dL RDW Std Deviation 45.4 (28.0-62.0) fl RDW Coeff of Desiree 14 (11.0-15.0) % Plt Count 404 H (150-400) K/uL MPV 9.80 (7.40-12.00) fL Neut % (Auto) 86.6 H (48.0-80.0) % Lymph % (Auto) 7.2 L (16.0-40.0) % Owen % (Auto) 6.1 (0.0-15.0) % Eos % (Auto) 0.0 (0.0-7.0) % Baso % (Auto) 0.1 (0.0-1.5) % Neut # (Auto) 8.5 H (1.4-5.7) K/uL Lymph # (Auto) 0.7 (0.6-2.4) K/uL Owen # (Auto) 0.6 (0.0-0.8) K/uL Eos # (Auto) 0.0 (0.0-0.7) K/uL Baso # (Auto) 0.0 (0.0-0.1) K/uL Nucleated RBC % 0.0 /100WBC Nucleated RBCs # 0 K/uL INR 1.17 APTT 27.4 (18.6-31.3) SEC ABG pH (7.35-7.45) ABG pCO2 (35-45) mmHG ABG pO2 (75-100) mmHG ABG HCO3 (22-26) mEq/L ABG Total CO2 ABG Base Excess (-2.0-2.0) Lactate 1.1 (0.20-2.00) mmol/L Sodium (136-145) mmol/L Potassium (3.5-5.1) mmol/L Chloride (98-107) mmol/L Carbon Dioxide (21.0-32.0) mmol/L BUN (7.0-18.0) mg/dL Creatinine (0.6-1.0) mg/dL Est Cr Clr Drug Dosing Estimated GFR (MDRD) ml/min Glucose (74-106) mg/dL Calcium (8.5-10.1) mg/dL Total Bilirubin (0.2-1.0) mg/dL AST (15-37) IU/L ALT (14-63) IU/L Alkaline Phosphatase (46-116) U/L Troponin I (0.000-0.056) ng/mL C-Reactive Protein (0.00-0.90) mg/dL Total Protein (6.4-8.2) g/dL Albumin (3.4-5.0) g/dL Globulin (2.6-4.0) g/dL Albumin/Globulin Ratio (0.9-1.6) Urine Color Urine Appearance Urine pH (5.0-8.0) Ur Specific [place] (1.001-1.035) Urine Protein (NEGATIVE) mg/dL Urine Glucose (UA) (NEGATIVE) mg/dL Urine Ketones (NEGATIVE) mg/dL Urine Occult Blood (NEGATIVE) Urine Nitrite (NEGATIVE) Urine Bilirubin (NEGATIVE) Urine Urobilinogen (<2.0) EU/dL Ur Leukocyte Esterase (NEGATIVE) Urine RBC (0-2/HPF) Urine WBC (0-5/HPF) Ur Epithelial Cells (NONE-FEW) Urine Bacteria (NEGATIVE) Urine Mucus (NONE-MOD) 08/07/20 08/07/20 08/07/20 Range/Units 20:55 21:25 22:08 WBC (4.0-11.0) K/uL RBC (4.30-5.90) M/uL Hgb (12.0-16.0) g/dL Hct (36.0-46.0) % MCV (80.0-98.0) fL MCH (27.0-32.0) pg MCHC (31.0-37.0) g/dL RDW Std Deviation (28.0-62.0) fl RDW Coeff of Desiree (11.0-15.0) % Plt Count (150-400) K/uL MPV (7.40-12.00) fL Neut % (Auto) (48.0-80.0) % Lymph % (Auto) (16.0-40.0) % Owen % (Auto) (0.0-15.0) % Eos % (Auto) (0.0-7.0) % Baso % (Auto) (0.0-1.5) % Neut # (Auto) (1.4-5.7) K/uL Lymph # (Auto) (0.6-2.4) K/uL Owen # (Auto) (0.0-0.8) K/uL Eos # (Auto) (0.0-0.7) K/uL Baso # (Auto) (0.0-0.1) K/uL Nucleated RBC % /100WBC Nucleated RBCs # K/uL INR APTT (18.6-31.3) SEC ABG pH 7.463 H (7.35-7.45) ABG pCO2 37 (35-45) mmHG ABG pO2 75 (75-100) mmHG ABG HCO3 27 H (22-26) mEq/L ABG Total CO2 24.2 ABG Base Excess 3.0 H (-2.0-2.0) Lactate (0.20-2.00) mmol/L Sodium 139 (136-145) mmol/L Potassium 3.8 (3.5-5.1) mmol/L Chloride 103 (98-107) mmol/L Carbon Dioxide 27.1 (21.0-32.0) mmol/L BUN 18 (7.0-18.0) mg/dL Creatinine 1.0 (0.6-1.0) mg/dL Est Cr Clr Drug Dosing TNP Estimated GFR (MDRD) 55.0 ml/min Glucose 136 H (74-106) mg/dL Calcium 8.2 L (8.5-10.1) mg/dL Total Bilirubin 0.4 (0.2-1.0) mg/dL AST 72 H (15-37) IU/L ALT 72 H (14-63) IU/L Alkaline Phosphatase 49 (46-116) U/L Troponin I 0.050 (0.000-0.056) ng/mL C-Reactive Protein 2.10 H (0.00-0.90) mg/dL Total Protein 6.3 L (6.4-8.2) g/dL Albumin 2.8 L (3.4-5.0) g/dL Globulin 3.5 (2.6-4.0) g/dL Albumin/Globulin Ratio 0.8 L (0.9-1.6) Urine Color YELLOW Urine Appearance CLEAR Urine pH 6.0 (5.0-8.0) Ur Specific [place] 1.010 (1.001-1.035) Urine Protein NEGATIVE (NEGATIVE) mg/dL Urine Glucose (UA) NEGATIVE (NEGATIVE) mg/dL Urine Ketones NEGATIVE (NEGATIVE) mg/dL Urine Occult Blood NEGATIVE (NEGATIVE) Urine Nitrite NEGATIVE (NEGATIVE) Urine Bilirubin NEGATIVE (NEGATIVE) Urine Urobilinogen 1.0 (<2.0) EU/dL Ur Leukocyte Esterase NEGATIVE (NEGATIVE) Urine RBC NONE SEEN (0-2/HPF) Urine WBC 0-3 (0-5/HPF) Ur Epithelial Cells FEW (NONE-FEW) Urine Bacteria RARE (NEGATIVE) Urine Mucus LIGHT (NONE-MOD) 08/08/20 08/08/20 Range/Units 06:04 06:04 WBC 6.29 (4.0-11.0) K/uL RBC 4.03 L (4.30-5.90) M/uL Hgb 11.6 L (12.0-16.0) g/dL Hct 36.8 (36.0-46.0) % MCV 91.3 (80.0-98.0) fL MCH 28.8 (27.0-32.0) pg MCHC 31.5 (31.0-37.0) g/dL RDW Std Deviation 46.2 (28.0-62.0) fl RDW Coeff of Desiree 14 (11.0-15.0) % Plt Count 382 (150-400) K/uL MPV 10.10 (7.40-12.00) fL Neut % (Auto) 86.9 H (48.0-80.0) % Lymph % (Auto) 11.0 L (16.0-40.0) % Owen % (Auto) 1.9 (0.0-15.0) % Eos % (Auto) 0.0 (0.0-7.0) % Baso % (Auto) 0.2 (0.0-1.5) % Neut # (Auto) 5.5 (1.4-5.7) K/uL Lymph # (Auto) 0.7 (0.6-2.4) K/uL Owen # (Auto) 0.1 (0.0-0.8) K/uL Eos # (Auto) 0.0 (0.0-0.7) K/uL Baso # (Auto) 0.0 (0.0-0.1) K/uL Nucleated RBC % 0.0 /100WBC Nucleated RBCs # 0 K/uL INR APTT (18.6-31.3) SEC ABG pH (7.35-7.45) ABG pCO2 (35-45) mmHG ABG pO2 (75-100) mmHG ABG HCO3 (22-26) mEq/L ABG Total CO2 ABG Base Excess (-2.0-2.0) Lactate (0.20-2.00) mmol/L Sodium 138 (136-145) mmol/L Potassium 4.3 (3.5-5.1) mmol/L Chloride 103 (98-107) mmol/L Carbon Dioxide 26.9 (21.0-32.0) mmol/L BUN 16 (7.0-18.0) mg/dL Creatinine 0.8 (0.6-1.0) mg/dL Est Cr Clr Drug Dosing 63.06 Estimated GFR (MDRD) > 60.0 ml/min Glucose 172 H (74-106) mg/dL Calcium 7.7 L (8.5-10.1) mg/dL Total Bilirubin 0.3 (0.2-1.0) mg/dL AST 64 H (15-37) IU/L ALT 70 H (14-63) IU/L Alkaline Phosphatase 46 (46-116) U/L Troponin I (0.000-0.056) ng/mL C-Reactive Protein (0.00-0.90) mg/dL Total Protein 6.0 L (6.4-8.2) g/dL Albumin 2.7 L (3.4-5.0) g/dL Globulin 3.3 (2.6-4.0) g/dL Albumin/Globulin Ratio 0.8 L (0.9-1.6) Urine Color Urine Appearance Urine pH (5.0-8.0) Ur Specific [place] (1.001-1.035) Urine Protein (NEGATIVE) mg/dL Urine Glucose (UA) (NEGATIVE) mg/dL Urine Ketones (NEGATIVE) mg/dL Urine Occult Blood (NEGATIVE) Urine Nitrite (NEGATIVE) Urine Bilirubin (NEGATIVE) Urine Urobilinogen (<2.0) EU/dL Ur Leukocyte Esterase (NEGATIVE) Urine RBC (0-2/HPF) Urine WBC (0-5/HPF) Ur Epithelial Cells (NONE-FEW) Urine Bacteria (NEGATIVE) Urine Mucus (NONE-MOD) Med Orders - Current: Current Medications Acetaminophen (Tylenol) 650 mg PO Q4H PRN PRN Reason: Pain (Mild 1-3)/fever Dexamethasone (Dexamethasone) 6 mg PO DAILY [facility] Last Admin: 08/08/20 09:59 Dose: 6 mg Documented by: Enoxaparin Sodium (Lovenox) 40 mg SUBCUT Q24H [facility] Last Admin: 08/08/20 01:05 Dose: 40 mg Documented by: Remdesivir 100 mg/ Sodium (Chloride) 100 mls @ 100 mls/hr IV Q24H [facility] Stop: 08/12/20 01:59 Sodium Chloride (Normal Saline) 500 mls @ 500 mls/hr IV .BOLUS [facility] Levothyroxine Sodium (Levothyroxine) 112 mcg PO ACBREAKFAST [facility] Last Admin: 08/08/20 08:02 Dose: 112 mcg Documented by: Midodrine (Midodrine) 5 mg PO DAILY [facility] Midodrine (Midodrine) 5 mg PO BID PRN PRN Reason: orthostatic hypotension Ondansetron HCl (Zofran) 4 mg IVPUSH Q4H PRN PRN Reason: Nausea Last Admin: 08/08/20 09:59 Dose: 4 mg Documented by: Paroxetine HCl (Paxil) 20 mg PO DAILY [facility] Last Admin: 08/08/20 08:02 Dose: 20 mg Documented by: Sodium Chloride (Saline Flush) 10 ml FLUSH ASDIRECTED PRN PRN Reason: Keep Vein Open Sodium Chloride (Saline Flush) 2.5 ml FLUSH ASDIRECTED PRN PRN Reason: Keep Vein Open Discontinued Medications Dexamethasone (Dexamethasone) 10 mg IVPUSH ONETIME ONE Stop: 08/07/20 20:37 Last Admin: 08/07/20 21:26 Dose: 10 mg Documented by: Remdesivir 200 mg/ Sodium (Chloride) 250 mls @ 250 mls/hr IV ONETIME ONE Stop: 08/07/20 20:37 Last Admin: 08/08/20 01:03 Dose: 250 mls/hr Documented by: Sodium Chloride (Normal Saline) 2,000 mls @ 2,000 mls/hr IV BOLUS ONE; Protocol Stop: 08/07/20 21:36 Last Admin: 08/07/20 20:57 Dose: 2,000 mls/hr Documented by: Remdesivir 100 mg/ Sodium (Chloride) 100 mls @ 100 mls/hr IV Q24H [facility] Stop: 08/11/20 00:59 Last Admin: 08/08/20 05:01 Dose: Not Given Documented by: Prochlorperazine Edisylate (Compazine) 10 mg IVPUSH ONETIME ONE Stop: 08/07/20 21:02 Last Admin: 08/07/20 21:27 Dose: 10 mg Documented by: - Exam General: Alert, Oriented Neck: Supple Lungs: Clear to Auscultation, Normal Respiratory Effort Cardiovascular: Regular Rate, Regular Rhythm GI/Abdominal Exam: Normal Bowel Sounds, Soft, Non-Tender, No Distention Extremities: Non-Tender, No Pedal Edema Sepsis Event Note - Evaluation Sepsis Screening Result: No Definite Risk - Focused Exam Vital Signs: Vital Signs Temp Pulse Resp BP Pulse Ox 08/08/20 10:01 129/59 L 08/08/20 07:57 36.4 C 58 L 14 143/64 H 96 08/08/20 04:46 35.6 C L 67 16 129/65 95 - Problem List Review Problem List Initiated/Reviewed/Updated: Yes - My Orders Last 24 Hours: My Active Orders 08/07/20 22:02 Telemetry Monitoring [Cardiac Monitoring] [RC] Q8H 08/07/20 23:45 Enoxaparin [Lovenox] 40 mg SUBCUT Q24H 08/07/20 23:52 Oxygen Therapy [RC] PRN Up ad Marilee [RC] ASDIRECTED VTE/DVT Education [RC] PER UNIT ROUTINE Vital Signs [RC] Q4H Acetaminophen [TylenoL] 650 mg PO Q4H PRN Ondansetron [Zofran] 4 mg IVPUSH Q4H PRN Sequential Compression Device [OM.PC] Per Unit Routine Resuscitation Status Routine 08/07/20 23:53 Antiembolic Devices [RC] PER UNIT ROUTINE 08/08/20 05:14 Midodrine 5 mg PO BID PRN 08/08/20 07:30 Levothyroxine 112 mcg PO ACBREAKFAST 08/08/20 09:00 Midodrine 5 mg PO DAILY PARoxetine [Paxil] 20 mg PO DAILY dexAMETHasone 6 mg PO DAILY 08/08/20 12:45 Sodium Chloride 0.9% [Normal Saline] 500 ml IV .BOLUS 08/09/20 01:00 Remdesivir (Eua) [Remdesivir (EUA)] 100 mg Sodium Chloride 0.9% [Normal Saline] 100 ml IV Q24H 08/09/20 05:11 CBC WITH AUTO DIFF [HEME] AM COMPREHENSIVE METABOLIC PN,CMP [CHEM] AM - Plan Plan:: 69 yo female admitted for COVID. COVID: contni remdesivir day 4/5, dexamethason, lovenox, will bolus 500ml of NS due to low oral intake.
[2020-08-09] MEDS: Enoxaparin 40 MG/0.4 ML Syringe SUBCUT SCH ×2 (00:07→23:30)
[2020-08-09] MEDS: REMDESIVIR 100 MG in Sodium Chloride 0.9% 100 ML IV SCH (00:08)
[2020-08-09] MEDS: Levothyroxine 112 MCG Tab PO SCH (06:59)
[2020-08-09 07:42] LABS: BLOOD UREA NITROGEN,BUN 11 mg/dL (7.0-18.0); CARBON DIOXIDE,CO2 30.1 mmol/L (21.0-32.0); CHLORIDE,CL 103 mmol/L (98-107); GLUCOSE RANDOM 113 mg/dL (74-106); POTASSIUM,K 4.1 mmol/L (3.5-5.1); SODIUM,NA 138 mmol/L (136-145)
[2020-08-09] MEDS: Midodrine 5 MG Tab PO SCH (08:43)
[2020-08-09] MEDS: Dexamethasone 4 MG Tab PO SCH (08:43)
[2020-08-09] MEDS: PARoxetine 20 MG Tab PO SCH (08:44)
--- NOTE | 2020-08-09 11:17 | PCM.PN ---
- General Info Date of Service: 08/09/20 Admission Dx/Problem (Free Text): Admission Diagnosis/Problem Admission Diagnosis/Problem Viral infection Subjective Update: seen at bedside, still feels very weak. - Review of Systems General: Reports: Weakness, Fatigue, Malaise Pulmonary: Denies: Shortness of Breath, Pleuritic Chest Pain Cardiovascular: Denies: Chest Pain, Palpitations, Dyspnea on Exertion Gastrointestinal: Reports: Decreased Appetite, Diarrhea. Denies: Abdominal Pain, Constipation Genitourinary: Denies: Dysuria, Frequency, Burning, Pain Musculoskeletal: Denies: Neck Pain, Shoulder Pain, Arm Pain, Hand Pain Skin: Denies: Cyanosis, Jaundice, Mottled - Patient Data Vitals - Most Recent: Last Vital Signs Temp 36.4 C 08/09/20 08:00 Pulse 93 08/09/20 08:00 Resp 16 08/09/20 08:00 BP 116/68 08/09/20 08:00 Pulse Ox 96 08/09/20 08:00 Weight - Most Recent: 60.192 kg I&O - Last 24 Hours: Intake & Output 08/08/20 08/09/20 08/09/20 22:59 06:59 14:59 Intake Total 1300 900 Output Total 700 500 Balance 600 400 Lab Results Last 24 Hours: Laboratory Results - last 24 hr 08/09/20 08/09/20 Range/Units 06:00 06:00 WBC 7.16 (4.0-11.0) K/uL RBC 4.10 L (4.30-5.90) M/uL Hgb 12.1 (12.0-16.0) g/dL Hct 36.8 (36.0-46.0) % MCV 89.8 (80.0-98.0) fL MCH 29.5 (27.0-32.0) pg MCHC 32.9 (31.0-37.0) g/dL RDW Std Deviation 44.4 (28.0-62.0) fl RDW Coeff of Desiree 14 (11.0-15.0) % Plt Count 433 H (150-400) K/uL MPV 9.90 (7.40-12.00) fL Neut % (Auto) 75.8 (48.0-80.0) % Lymph % (Auto) 14.5 L (16.0-40.0) % [place]ook[place] % (Auto) 9.6 (0.0-15.0) % Eos % (Auto) 0.0 (0.0-7.0) % Baso % (Auto) 0.1 (0.0-1.5) % Neut # (Auto) 5.4 (1.4-5.7) K/uL Lymph # (Auto) 1.0 (0.6-2.4) K/uL [place] # (Auto) 0.7 (0.0-0.8) K/uL Eos # (Auto) 0.0 (0.0-0.7) K/uL Baso # (Auto) 0.0 (0.0-0.1) K/uL Nucleated RBC % 0.0 /100WBC Nucleated RBCs # 0 K/uL Sodium 138 (136-145) mmol/L Potassium 4.1 (3.5-5.1) mmol/L Chloride 103 (98-107) mmol/L Carbon Dioxide 30.1 (21.0-32.0) mmol/L BUN 11 (7.0-18.0) mg/dL Creatinine 0.9 (0.6-1.0) mg/dL Est Cr Clr Drug Dosing 56.06 mL/min Estimated GFR (MDRD) > 60.0 ml/min Glucose 113 H (74-106) mg/dL Calcium 8.1 L (8.5-10.1) mg/dL Total Bilirubin 0.4 (0.2-1.0) mg/dL AST 34 (15-37) IU/L ALT 56 (14-63) IU/L Alkaline Phosphatase 43 L (46-116) U/L Total Protein 5.8 L (6.4-8.2) g/dL Albumin 2.6 L (3.4-5.0) g/dL Globulin 3.2 (2.6-4.0) g/dL Albumin/Globulin Ratio 0.8 L (0.9-1.6) Thad Results Last 24 Hours: Microbiology 08/07/20 21:35 Aerobic Blood Culture - Preliminary Blood - Venous - Lab Draw NO GROWTH AFTER 1 DAY Anaerobic Blood Culture - Preliminary NO GROWTH AFTER 1 DAY 08/07/20 20:55 Aerobic Blood Culture - Preliminary Blood - Venous NO GROWTH AFTER 1 DAY Anaerobic Blood Culture - Preliminary NO GROWTH AFTER 1 DAY Med Orders - Current: Current Medications Acetaminophen (Tylenol) 650 mg PO Q4H PRN PRN Reason: Pain (Mild 1-3)/fever Last Admin: 08/08/20 14:29 Dose: 650 mg Documented by: Dexamethasone (Dexamethasone) 6 mg PO DAILY [facility] Last Admin: 08/09/20 08:43 Dose: 6 mg Documented by: Enoxaparin Sodium (Lovenox) 40 mg SUBCUT Q24H [facility] Last Admin: 08/09/20 00:07 Dose: 40 mg Documented by: Remdesivir 100 mg/ Sodium (Chloride) 100 mls @ 100 mls/hr IV Q24H [facility] Stop: 08/12/20 01:59 Last Admin: 08/09/20 00:08 Dose: 100 mls/hr Documented by: Sodium Chloride (Normal Saline) 500 mls @ 500 mls/hr IV .BOLUS [facility] Last Admin: 08/08/20 13:16 Dose: 500 mls/hr Documented by: Levothyroxine Sodium (Levothyroxine) 112 mcg PO ACBREAKFAST [facility] Last Admin: 08/09/20 06:59 Dose: 112 mcg Documented by: Midodrine (Midodrine) 5 mg PO DAILY [facility] Last Admin: 08/09/20 08:43 Dose: 5 mg Documented by: Midodrine (Midodrine) 5 mg PO BID PRN PRN Reason: orthostatic hypotension Ondansetron HCl (Zofran) 4 mg IVPUSH Q4H PRN PRN Reason: Nausea Last Admin: 08/08/20 09:59 Dose: 4 mg Documented by: Paroxetine HCl (Paxil) 20 mg PO DAILY [facility] Last Admin: 08/09/20 08:44 Dose: 20 mg Documented by: Sodium Chloride (Saline Flush) 10 ml FLUSH ASDIRECTED PRN PRN Reason: Keep Vein Open Sodium Chloride (Saline Flush) 2.5 ml FLUSH ASDIRECTED PRN PRN Reason: Keep Vein Open Discontinued Medications Dexamethasone (Dexamethasone) 10 mg IVPUSH ONETIME ONE Stop: 08/07/20 20:37 Last Admin: 08/07/20 21:26 Dose: 10 mg Documented by: Remdesivir 200 mg/ Sodium (Chloride) 250 mls @ 250 mls/hr IV ONETIME ONE Stop: 08/07/20 20:37 Last Admin: 08/08/20 01:03 Dose: 250 mls/hr Documented by: Sodium Chloride (Normal Saline) 2,000 mls @ 2,000 mls/hr IV BOLUS ONE; Protocol Stop: 08/07/20 21:36 Last Admin: 08/07/20 20:57 Dose: 2,000 mls/hr Documented by: Remdesivir 100 mg/ Sodium (Chloride) 100 mls @ 100 mls/hr IV Q24H [facility] Stop: 08/11/20 00:59 Last Admin: 08/08/20 05:01 Dose: Not Given Documented by: Prochlorperazine Edisylate (Compazine) 10 mg IVPUSH ONETIME ONE Stop: 08/07/20 21:02 Last Admin: 08/07/20 21:27 Dose: 10 mg Documented by: - Exam Quality Assessment: Supplemental Oxygen General: Alert, Oriented Neck: Supple Lungs: Clear to Auscultation, Normal Respiratory Effort Cardiovascular: Regular Rate, Regular Rhythm GI/Abdominal Exam: Normal Bowel Sounds, Soft, Non-Tender Extremities: Normal Inspection, Normal Range of Motion Sepsis Event Note - Evaluation Sepsis Screening Result: No Definite Risk - Focused Exam Vital Signs: Vital Signs Temp Pulse Resp BP Pulse Ox 08/09/20 08:00 36.4 C 93 16 116/68 96 08/09/20 03:55 36.7 C 70 17 142/70 H 95 08/09/20 00:00 36.6 C 61 16 121/64 93 L - Problem List & Annotations (1) Weakness generalized SNOMED Code(s): 99956821 Code(s): R53.1 - WEAKNESS Status: Acute Current Visit: Yes (2) COVID-19 SNOMED Code(s): 462365188 Code(s): U07.1 - COVID-19 Status: Acute Current Visit: Yes - Problem List Review Problem List Initiated/Reviewed/Updated: Yes - Plan Plan:: 69 yo female admitted for COVID. COVID: continue Remdesivir day 5/5, Dexamethasone, Lovenox PT consult Home health.
[2020-08-09] MEDS ORDERED: Albuterol/Ipratropium 4 GM Inhalation Spray INH PRN (13:15)
[2020-08-09] MEDS ORDERED: Azithromycin 250 MG Tab PO SCH (13:15)
[2020-08-09] MEDS: Melatonin 3 MG Tab PO PRN (22:07)
[2020-08-10] MEDS: REMDESIVIR 100 MG in Sodium Chloride 0.9% 100 ML IV SCH (00:48)
[2020-08-10] MEDS: Levothyroxine 112 MCG Tab PO SCH (06:42)
[2020-08-10] MEDS: Dexamethasone 4 MG Tab PO SCH (09:19)
[2020-08-10] MEDS: Midodrine 5 MG Tab PO SCH (09:20)
[2020-08-10] MEDS: PARoxetine 20 MG Tab PO SCH (09:20)
--- NOTE | 2020-08-10 12:21 | PCM.PN ---
- General Info Date of Service: 08/10/20 Admission Dx/Problem (Free Text): Admission Diagnosis/Problem Admission Diagnosis/Problem Viral infection Subjective Update: seen at bedside, still feels very weak, unable to ambulate safely - Review of Systems General: Reports: Weakness, Fatigue, Malaise Pulmonary: Denies: Shortness of Breath, Pleuritic Chest Pain Gastrointestinal: Denies: Abdominal Pain, Constipation, Decreased Appetite Genitourinary: Denies: Dysuria, Frequency, Burning Musculoskeletal: Denies: Neck Pain, Shoulder Pain, Arm Pain Skin: Denies: Cyanosis, Jaundice, Mottled, Pallor Neurological: Denies: Confusion, Dizziness, Headache - Patient Data Vitals - Most Recent: Last Vital Signs Temp 37.2 C 08/10/20 11:59 Pulse 68 08/10/20 11:59 Resp 16 08/10/20 11:59 BP 125/58 L 08/10/20 11:59 Pulse Ox 95 08/10/20 11:59 Weight - Most Recent: 60.192 kg I&O - Last 24 Hours: Intake & Output 08/09/20 08/10/20 08/10/20 22:59 06:59 14:59 Intake Total 900 800 Output Total 1000 1200 Balance -100 -400 Thad Results Last 24 Hours: Microbiology 08/07/20 21:35 Aerobic Blood Culture - Preliminary Blood - Venous - Lab Draw NO GROWTH AFTER 2 DAYS Anaerobic Blood Culture - Preliminary NO GROWTH AFTER 2 DAYS 08/07/20 20:55 Aerobic Blood Culture - Preliminary Blood - Venous NO GROWTH AFTER 2 DAYS Anaerobic Blood Culture - Preliminary NO GROWTH AFTER 2 DAYS Med Orders - Current: Current Medications Acetaminophen (Tylenol) 650 mg PO Q4H PRN PRN Reason: Pain (Mild 1-3)/fever Last Admin: 08/08/20 14:29 Dose: 650 mg Documented by: Albuterol/Ipratropium (Combivent Respimat) 0 gm INH Q4H PRN PRN Reason: Dyspnea Dexamethasone (Dexamethasone) 6 mg PO DAILY [facility] Last Admin: 08/10/20 09:19 Dose: 6 mg Documented by: Enoxaparin Sodium (Lovenox) 40 mg SUBCUT Q24H [facility] Last Admin: 08/09/20 23:30 Dose: 40 mg Documented by: Sodium Chloride (Normal Saline) 500 mls @ 500 mls/hr IV .BOLUS [facility] Last Admin: 08/08/20 13:16 Dose: 500 mls/hr Documented by: Levothyroxine Sodium (Levothyroxine) 112 mcg PO ACBREAKFAST [facility] Last Admin: 08/10/20 06:42 Dose: 112 mcg Documented by: Melatonin (Melatonin) 6 mg PO BEDTIME PRN PRN Reason: Insomnia Last Admin: 08/09/20 22:07 Dose: 6 mg Documented by: Midodrine (Midodrine) 5 mg PO DAILY [facility] Last Admin: 08/10/20 09:20 Dose: 5 mg Documented by: Midodrine (Midodrine) 5 mg PO BID PRN PRN Reason: orthostatic hypotension Ondansetron HCl (Zofran) 4 mg IVPUSH Q4H PRN PRN Reason: Nausea Last Admin: 08/08/20 09:59 Dose: 4 mg Documented by: Paroxetine HCl (Paxil) 20 mg PO DAILY [facility] Last Admin: 08/10/20 09:20 Dose: 20 mg Documented by: Sodium Chloride (Saline Flush) 10 ml FLUSH ASDIRECTED PRN PRN Reason: Keep Vein Open Sodium Chloride (Saline Flush) 2.5 ml FLUSH ASDIRECTED PRN PRN Reason: Keep Vein Open Discontinued Medications Azithromycin (Zithromax) 500 mg PO Q24H [facility] Last Admin: 08/09/20 14:40 Dose: Not Given Documented by: Dexamethasone (Dexamethasone) 10 mg IVPUSH ONETIME ONE Stop: 08/07/20 20:37 Last Admin: 08/07/20 21:26 Dose: 10 mg Documented by: Remdesivir 200 mg/ Sodium (Chloride) 250 mls @ 250 mls/hr IV ONETIME ONE Stop: 08/07/20 20:37 Last Admin: 08/08/20 01:03 Dose: 250 mls/hr Documented by: Sodium Chloride (Normal Saline) 2,000 mls @ 2,000 mls/hr IV BOLUS ONE; Protocol Stop: 08/07/20 21:36 Last Admin: 08/07/20 20:57 Dose: 2,000 mls/hr Documented by: Remdesivir 100 mg/ Sodium (Chloride) 100 mls @ 100 mls/hr IV Q24H [facility] Stop: 08/11/20 00:59 Last Admin: 08/08/20 05:01 Dose: Not Given Documented by: Remdesivir 100 mg/ Sodium (Chloride) 100 mls @ 100 mls/hr IV Q24H [facility] Stop: 08/10/20 01:59 Last Admin: 08/10/20 00:48 Dose: 100 mls/hr Documented by: Prochlorperazine Edisylate (Compazine) 10 mg IVPUSH ONETIME ONE Stop: 08/07/20 21:02 Last Admin: 08/07/20 21:27 Dose: 10 mg Documented by: - Exam Quality Assessment: No: Supplemental Oxygen General: Alert, Cooperative, Mild Distress Lungs: Clear to Auscultation, Normal Respiratory Effort Cardiovascular: Regular Rate, Regular Rhythm GI/Abdominal Exam: Normal Bowel Sounds, Soft, Non-Tender Back Exam: Normal Inspection, Full Range of Motion Extremities: Normal Inspection, Normal Range of Motion Sepsis Event Note - Evaluation Sepsis Screening Result: No Definite Risk - Focused Exam Vital Signs: Vital Signs Temp Pulse Resp BP Pulse Ox 08/10/20 11:59 37.2 C 68 16 125/58 L 95 08/10/20 09:15 36.7 C 82 16 121/75 93 L 08/10/20 03:58 36.6 C 72 17 119/59 L 94 L - Problem List & Annotations (1) Weakness generalized SNOMED Code(s): 12958236 Code(s): R53.1 - WEAKNESS Status: Acute Current Visit: Yes (2) COVID-19 SNOMED Code(s): 220885527 Code(s): U07.1 - COVID-19 Status: Acute Current Visit: Yes - Problem List Review Problem List Initiated/Reviewed/Updated: Yes - My Orders Last 24 Hours: My Active Orders 08/09/20 13:15 Albuterol/Ipratropium [Combivent Respimat] See Dose Instructions INH Q4H PRN 08/09/20 13:16 RT Post Treatment Assessment [RC] Click to Edit RT Pre-Treatment Assessment [RC] Click to Edit 08/09/20 13:17 Consult to Physical Therapy [PT Evaluation and Treatment] [CONS] Routine 08/09/20 13:18 Consult to Home Health [CONS] Routine 08/09/20 21:09 Melatonin 6 mg PO BEDTIME PRN - Plan Plan:: 69 yo female admitted for COVID. on RA, hypoxia resolved cont Dexamethasone, Lovenox PT consult, recommended inpatient rehab till safe for dc Home health upon dc Encourage out of bed to chair.
[2020-08-10] MEDS ORDERED: Lactated Ringers 1,000 ML IV ONE (17:41)
[2020-08-10] MEDS: Lactated Ringers 1,000 ML IV SCH (19:17)
[2020-08-10] MEDS: Melatonin 3 MG Tab PO PRN (22:10)
[2020-08-11] MEDS: Enoxaparin 40 MG/0.4 ML Syringe SUBCUT SCH (00:33)
[2020-08-11] MEDS: Lactated Ringers 1,000 ML IV SCH ×3 (04:44→21:36)
[2020-08-11 06:22] LABS: BLOOD UREA NITROGEN,BUN 10 mg/dL (7.0-18.0); CARBON DIOXIDE,CO2 34.6 mmol/L (21.0-32.0); CHLORIDE,CL 103 mmol/L (98-107); GLUCOSE RANDOM 93 mg/dL (74-106); SODIUM,NA 140 mmol/L (136-145)
[2020-08-11] MEDS: Levothyroxine 112 MCG Tab PO SCH (07:30)
[2020-08-11] MEDS: PARoxetine 20 MG Tab PO SCH (09:44)
[2020-08-11] MEDS: Dexamethasone 4 MG Tab PO SCH (09:44)
[2020-08-11] MEDS: Midodrine 5 MG Tab PO SCH (09:45)
--- NOTE | 2020-08-11 12:47 | PCM.PN ---
- General Info Date of Service: 08/11/20 Admission Dx/Problem (Free Text): Admission Diagnosis/Problem Admission Diagnosis/Problem Viral infection Subjective Update: seen at bedside, still feels weak but a little beteer than yesterday, in better mood, more talkative, unable to ambulate safely without help - Review of Systems General: Reports: Weakness, Fatigue, Malaise. Denies: Fever, Chills, Night Sweats Pulmonary: Denies: Shortness of Breath, Pleuritic Chest Pain Cardiovascular: Denies: Chest Pain, Palpitations, Dyspnea on Exertion Gastrointestinal: Reports: Decreased Appetite. Denies: Abdominal Pain, Constipation, Diarrhea, Difficulty Swallowing, Nausea, Vomiting Genitourinary: Denies: Dysuria, Frequency, Burning Musculoskeletal: Denies: Neck Pain, Shoulder Pain, Arm Pain, Hand Pain Skin: Denies: Cyanosis, Jaundice, Mottled - Patient Data Vitals - Most Recent: Last Vital Signs Temp 36.6 C 08/11/20 08:00 Pulse 67 08/11/20 08:00 Resp 16 08/11/20 08:00 BP 127/58 L 08/11/20 08:00 Pulse Ox 95 08/11/20 08:00 Orthostatic Blood Pressure [ 75/51 Standing] Orthostatic Blood Pressure [ 93/54 Sitting] Orthostatic Blood Pressure [ 125/61 Supine] Weight - Most Recent: 60.192 kg I&O - Last 24 Hours: Intake & Output 08/10/20 08/11/20 08/11/20 22:59 06:59 14:59 Intake Total 1900 300 Output Total 1300 700 Balance 600 -400 Lab Results Last 24 Hours: Laboratory Results - last 24 hr 08/11/20 08/11/20 Range/Units 05:40 05:40 WBC 6.40 (4.0-11.0) K/uL RBC 4.33 (4.30-5.90) M/uL Hgb 12.7 (12.0-16.0) g/dL Hct 39.4 (36.0-46.0) % MCV 91.0 (80.0-98.0) fL MCH 29.3 (27.0-32.0) pg MCHC 32.2 (31.0-37.0) g/dL RDW Std Deviation 43.8 (28.0-62.0) fl RDW Coeff of Desiree 13 (11.0-15.0) % Plt Count 418 H (150-400) K/uL MPV 9.90 (7.40-12.00) fL Neut % (Auto) 70.3 (48.0-80.0) % Lymph % (Auto) 20.2 (16.0-40.0) % [place] % (Auto) 9.5 (0.0-15.0) % Eos % (Auto) 0.0 (0.0-7.0) % Baso % (Auto) 0.0 (0.0-1.5) % Neut # (Auto) 4.5 (1.4-5.7) K/uL Lymph # (Auto) 1.3 (0.6-2.4) K/uL [place] # (Auto) 0.6 (0.0-0.8) K/uL Eos # (Auto) 0.0 (0.0-0.7) K/uL Baso # (Auto) 0.0 (0.0-0.1) K/uL Nucleated RBC % 0.0 /100WBC Nucleated RBCs # 0 K/uL Sodium 140 (136-145) mmol/L Potassium 4.0 (3.5-5.1) mmol/L Chloride 103 (98-107) mmol/L Carbon Dioxide 34.6 H (21.0-32.0) mmol/L BUN 10 (7.0-18.0) mg/dL Creatinine 0.8 (0.6-1.0) mg/dL Est Cr Clr Drug Dosing 63.06 mL/min Estimated GFR (MDRD) > 60.0 ml/min Glucose 93 (74-106) mg/dL Calcium 8.5 (8.5-10.1) mg/dL Phosphorus 2.8 (2.6-4.7) mg/dL Magnesium 1.9 (1.8-2.4) mg/dL Thad Results Last 24 Hours: Microbiology 08/07/20 21:35 Aerobic Blood Culture - Preliminary Blood - Venous - Lab Draw NO GROWTH AFTER 3 DAYS Anaerobic Blood Culture - Preliminary NO GROWTH AFTER 3 DAYS 08/07/20 20:55 Aerobic Blood Culture - Preliminary Blood - Venous NO GROWTH AFTER 3 DAYS Anaerobic Blood Culture - Preliminary NO GROWTH AFTER 3 DAYS Med Orders - Current: Current Medications Acetaminophen (Tylenol) 650 mg PO Q4H PRN PRN Reason: Pain (Mild 1-3)/fever Last Admin: 08/08/20 14:29 Dose: 650 mg Documented by: Albuterol/Ipratropium (Combivent Respimat) 0 gm INH Q4H PRN PRN Reason: Dyspnea Dexamethasone (Dexamethasone) 6 mg PO DAILY [facility] Last Admin: 08/11/20 09:44 Dose: 6 mg Documented by: Enoxaparin Sodium (Lovenox) 40 mg SUBCUT Q24H [facility] Last Admin: 08/11/20 00:33 Dose: 40 mg Documented by: Sodium Chloride (Normal Saline) 500 mls @ 500 mls/hr IV .BOLUS [facility] Last Admin: 08/08/20 13:16 Dose: 500 mls/hr Documented by: Lactated Ringer's (Ringers, Lactated) 1,000 mls @ 125 mls/hr IV ASDIRECTED [facility] Last Admin: 08/11/20 04:44 Dose: 125 mls/hr Documented by: Levothyroxine Sodium (Levothyroxine) 112 mcg PO ACBREAKFAST [facility] Last Admin: 08/11/20 07:30 Dose: 112 mcg Documented by: Melatonin (Melatonin) 6 mg PO BEDTIME PRN PRN Reason: Insomnia Last Admin: 08/10/20 22:10 Dose: 6 mg Documented by: Midodrine (Midodrine) 5 mg PO DAILY [facility] Last Admin: 08/11/20 09:45 Dose: 5 mg Documented by: Midodrine (Midodrine) 5 mg PO BID PRN PRN Reason: orthostatic hypotension Ondansetron HCl (Zofran) 4 mg IVPUSH Q4H PRN PRN Reason: Nausea Last Admin: 08/08/20 09:59 Dose: 4 mg Documented by: Paroxetine HCl (Paxil) 20 mg PO DAILY [facility] Last Admin: 08/11/20 09:44 Dose: 20 mg Documented by: Calcium Carbonate/ (Vitamin D3) 1 each PO DAILY [facility] Last Admin: 08/11/20 09:49 Dose: Not Given Documented by: Sodium Chloride (Saline Flush) 10 ml FLUSH ASDIRECTED PRN PRN Reason: Keep Vein Open Sodium Chloride (Saline Flush) 2.5 ml FLUSH ASDIRECTED PRN PRN Reason: Keep Vein Open Discontinued Medications Azithromycin (Zithromax) 500 mg PO Q24H [facility] Last Admin: 08/09/20 14:40 Dose: Not Given Documented by: Dexamethasone (Dexamethasone) 10 mg IVPUSH ONETIME ONE Stop: 08/07/20 20:37 Last Admin: 08/07/20 21:26 Dose: 10 mg Documented by: Remdesivir 200 mg/ Sodium (Chloride) 250 mls @ 250 mls/hr IV ONETIME ONE Stop: 08/07/20 20:37 Last Admin: 08/08/20 01:03 Dose: 250 mls/hr Documented by: Sodium Chloride (Normal Saline) 2,000 mls @ 2,000 mls/hr IV BOLUS ONE; Protocol Stop: 08/07/20 21:36 Last Admin: 08/07/20 20:57 Dose: 2,000 mls/hr Documented by: Remdesivir 100 mg/ Sodium (Chloride) 100 mls @ 100 mls/hr IV Q24H [facility] Stop: 08/11/20 00:59 Last Admin: 08/08/20 05:01 Dose: Not Given Documented by: Remdesivir 100 mg/ Sodium (Chloride) 100 mls @ 100 mls/hr IV Q24H [facility] Stop: 08/10/20 01:59 Last Admin: 08/10/20 00:48 Dose: 100 mls/hr Documented by: Lactated Ringer's (Ringers, Lactated) 1,000 mls @ 999 mls/hr IV .BOLUS ONE Stop: 08/10/20 18:41 Last Admin: 08/10/20 18:08 Dose: 999 mls/hr Documented by: Prochlorperazine Edisylate (Compazine) 10 mg IVPUSH ONETIME ONE Stop: 08/07/20 21:02 Last Admin: 08/07/20 21:27 Dose: 10 mg Documented by: - Exam General: Alert, Oriented, Cooperative, Mild Distress Lungs: Clear to Auscultation, Normal Respiratory Effort Cardiovascular: Regular Rate, Regular Rhythm GI/Abdominal Exam: Normal Bowel Sounds, Soft, Non-Tender, No Organomegaly. No: Distended, Guarding, Rigid Sepsis Event Note - Evaluation Sepsis Screening Result: No Definite Risk - Focused Exam Vital Signs: Vital Signs Temp Pulse Resp BP Pulse Ox 08/11/20 08:00 36.6 C 67 16 127/58 L 95 08/11/20 04:44 36.4 C 63 15 146/66 H 94 L - Problem List & Annotations (1) Weakness generalized SNOMED Code(s): 76304389 Code(s): R53.1 - WEAKNESS Status: Acute Current Visit: Yes (2) COVID-19 SNOMED Code(s): 991874306 Code(s): U07.1 - COVID-19 Status: Acute Current Visit: Yes - Problem List Review Problem List Initiated/Reviewed/Updated: Yes - My Orders Last 24 Hours: My Active Orders 08/10/20 13:55 Communication Order [RC] DAILY 08/10/20 17:45 Lactated Ringers [Ringers, Lactated] 1,000 ml IV ASDIRECTED 08/11/20 09:00 Patient's Own Medication [Ptom] 1 each PO DAILY - Plan Plan:: 69 yo female admitted for COVID. on RA, hypoxia resolved Appetite little better today cont fluids, BP was low yesterday, will dc as her appetite improves cont Dexamethasone, Lovenox PT consult, recommended inpatient rehab till safe for dc Home health upon dc Encourage out of bed to chair.
[2020-08-11] MEDS ORDERED: Pantoprazole 40 MG in Sodium Chloride 0.9% 10 ML IV ONE (15:51)
[2020-08-11] MEDS: Melatonin 3 MG Tab PO PRN (22:00)
[2020-08-12] MEDS: Enoxaparin 40 MG/0.4 ML Syringe SUBCUT SCH (00:41)
[2020-08-12 06:25] LABS: BLOOD UREA NITROGEN,BUN 9 mg/dL (7.0-18.0); CHLORIDE,CL 102 mmol/L (98-107); GLUCOSE RANDOM 94 mg/dL (74-106); POTASSIUM,K 4.1 mmol/L (3.5-5.1); SODIUM,NA 138 mmol/L (136-145)
[2020-08-12] MEDS: Levothyroxine 112 MCG Tab PO SCH (06:43)
[2020-08-12] MEDS: Midodrine 5 MG Tab PO SCH (09:38)
[2020-08-12] MEDS: PARoxetine 20 MG Tab PO SCH (09:38)
[2020-08-12] MEDS: Dexamethasone 4 MG Tab PO SCH (09:38)
--- NOTE | 2020-08-12 11:05 | PCM.DCSUM1 ---
Discharge Summary - Hospital Course HPI Initial Comments: 69 yo female who was discharged two days ago after being hospitalized for COVID. She was treated with dexamethasone and Remdesivir for two days. At home she describes generalized weakness. She does report nausea and poor apatite. brought her to the ER and was concerned that she is not able to take care of herself at home. Patient denies any fever, chills, shortness of breath, or diarrhea. She was admitted for further care. Patient remdesivir 5 day course was resumed, she never required oxygen but was very weak and unable to ambulate safely. PT saw her recommenced inpatient rehab for few days. Patients weakness improved over weekend, she was eating better, her ambulating improved although not back to her baseline but safe to go home. Patient was keen on going home and was medically stable for dc. She was recommended to fu with her PCP upon dc. - Discharge Data Discharge Date: 08/12/20 Discharge Disposition: Home, Self-Care 01 Condition: Fair - Referral to Home Health Primary Care Physician: PCP None - Discharge Diagnosis/Problem(s) (1) Weakness generalized SNOMED Code(s): 47835765 ICD Code: R53.1 - WEAKNESS Status: Acute Current Visit: Yes (2) COVID-19 SNOMED Code(s): 917019713 ICD Code: U07.1 - COVID-19 Status: Acute Current Visit: Yes - Patient Summary/Data Consults: Consultations 08/09/20 13:17 Consult to Physical Therapy [PT Evaluation and Treatment] [CONS] Routine 08/09/20 13:18 Consult to Home Health [CONS] Routine - Patient Instructions Diet: Usual Diet as Tolerated Activity: As Tolerated Driving: May Drive Today Showering/Bathing: May Shower Notify Provider of: Fever, Increased Pain, Swelling and Redness, Drainage, Nausea and/or Vomiting - Discharge Plan *PRESCRIPTION DRUG MONITORING PROGRAM REVIEWED*: Not Applicable *COPY OF PRESCRIPTION DRUG MONITORING REPORT IN PATIENT TIERA: Not Applicable Home Medications: Home Meds Multivitamin with Minerals [Multiple Vitamin] 1 tab PO DAILY 09/03/15 [History] PARoxetine [Paxil] 20 mg PO DAILY 09/03/15 [History] Aspirin 81 mg PO DAILY 05/26/19 [History] Calcium Carbonate/Vitamin D3 [Calcium 250+D] 1 each PO DAILY 07/29/20 [History] Levothyroxine 20 mg PO ACBREAKFAST 08/03/20 [History] Midodrine 5 mg PO DAILY 08/03/20 [History] Midodrine 5 mg PO BID PRN 08/05/20 [History] dexAMETHasone [Decadron] 6 mg PO DAILY #7 tablet 08/06/20 [Rx] Oxygen Therapy Mode: Room Air Patient Handouts: COVID-19 Frequently Asked Questions, COVID-19, Weakness, [id number], COVID-19: How to Protect Yourself and Others - CDC, Prevent the Spread of COVID-19 if You Are Sick - [facility] [place] Referrals: Vj Julian MD [Physician] - 08/30/20 1:30 pm - Discharge Summary/Plan Comment DC Time >30 min.: No - Patient Data Vitals - Most Recent: Last Vital Signs Temp 36.8 C 08/12/20 08:00 Pulse 75 08/12/20 08:00 Resp 18 08/12/20 08:00 BP 120/66 08/12/20 08:00 Pulse Ox 96 08/12/20 08:00 Orthostatic Blood Pressure [ 75/51 Standing] Orthostatic Blood Pressure [ 93/54 Sitting] Orthostatic Blood Pressure [ 125/61 Supine] Weight - Most Recent: 60.192 kg I&O - Last 24 hours: Intake & Output 08/11/20 08/12/20 08/12/20 22:59 06:59 14:59 Intake Total 2459 400 Output Total 1800 900 Balance 659 -500 Lab Results - Last 24 hrs: Laboratory Results - last 24 hr 08/11/20 08/12/20 08/12/20 Range/Units 16:05 05:55 05:55 WBC 7.08 (4.0-11.0) K/uL RBC 4.12 L (4.30-5.90) M/uL Hgb 12.1 (12.0-16.0) g/dL Hct 37.2 (36.0-46.0) % MCV 90.3 (80.0-98.0) fL MCH 29.4 (27.0-32.0) pg MCHC 32.5 (31.0-37.0) g/dL RDW Std Deviation 43.1 (28.0-62.0) fl RDW Coeff of Desiree 13 (11.0-15.0) % Plt Count 395 (150-400) K/uL MPV 9.70 (7.40-12.00) fL Neut % (Auto) 69.9 (48.0-80.0) % Lymph % (Auto) 21.6 (16.0-40.0) % [place] % (Auto) 8.1 (0.0-15.0) % Eos % (Auto) 0.4 (0.0-7.0) % Baso % (Auto) 0.0 (0.0-1.5) % Neut # (Auto) 5.0 (1.4-5.7) K/uL Lymph # (Auto) 1.5 (0.6-2.4) K/uL [place] # (Auto) 0.6 (0.0-0.8) K/uL Eos # (Auto) 0.0 (0.0-0.7) K/uL Baso # (Auto) 0.0 (0.0-0.1) K/uL Nucleated RBC % 0.0 /100WBC Nucleated RBCs # 0 K/uL Sodium 138 (136-145) mmol/L Potassium 4.1 (3.5-5.1) mmol/L Chloride 102 (98-107) mmol/L Carbon Dioxide 35.0 H (21.0-32.0) mmol/L BUN 9 (7.0-18.0) mg/dL Creatinine 0.9 (0.6-1.0) mg/dL Est Cr Clr Drug Dosing 56.06 mL/min Estimated GFR (MDRD) > 60.0 ml/min Glucose 94 (74-106) mg/dL Calcium 8.5 (8.5-10.1) mg/dL Phosphorus 2.9 (2.6-4.7) mg/dL Magnesium 1.7 L (1.8-2.4) mg/dL Troponin I < 0.050 (0.000-0.056) ng/mL ANUSHA Results - Last 24 hrs: Microbiology 08/07/20 21:35 Aerobic Blood Culture - Preliminary Blood - Venous - Lab Draw NO GROWTH AFTER 4 DAYS Anaerobic Blood Culture - Preliminary NO GROWTH AFTER 4 DAYS 08/07/20 20:55 Aerobic Blood Culture - Preliminary Blood - Venous NO GROWTH AFTER 4 DAYS Anaerobic Blood Culture - Preliminary NO GROWTH AFTER 4 DAYS Med Orders - Current: Current Medications Acetaminophen (Tylenol) 650 mg PO Q4H PRN PRN Reason: Pain (Mild 1-3)/fever Last Admin: 08/08/20 14:29 Dose: 650 mg Documented by: Albuterol/Ipratropium (Combivent Respimat) 0 gm INH Q4H PRN PRN Reason: Dyspnea Dexamethasone (Dexamethasone) 6 mg PO DAILY [facility] Last Admin: 08/12/20 09:38 Dose: 6 mg Documented by: Enoxaparin Sodium (Lovenox) 40 mg SUBCUT Q24H [facility] Last Admin: 08/12/20 00:41 Dose: 40 mg Documented by: Sodium Chloride (Normal Saline) 500 mls @ 500 mls/hr IV .BOLUS [facility] Last Admin: 08/08/20 13:16 Dose: 500 mls/hr Documented by: Lactated Ringer's (Ringers, Lactated) 1,000 mls @ 125 mls/hr IV ASDIRECTED [facility] Last Admin: 08/11/20 21:36 Dose: 125 mls/hr Documented by: Levothyroxine Sodium (Levothyroxine) 112 mcg PO ACBREAKFAST [facility] Last Admin: 08/12/20 06:43 Dose: 112 mcg Documented by: Melatonin (Melatonin) 6 mg PO BEDTIME PRN PRN Reason: Insomnia Last Admin: 08/11/20 22:00 Dose: 6 mg Documented by: Midodrine (Midodrine) 5 mg PO DAILY [facility] Last Admin: 08/12/20 09:38 Dose: 5 mg Documented by: Midodrine (Midodrine) 5 mg PO BID PRN PRN Reason: orthostatic hypotension Ondansetron HCl (Zofran) 4 mg IVPUSH Q4H PRN PRN Reason: Nausea Last Admin: 08/08/20 09:59 Dose: 4 mg Documented by: Paroxetine HCl (Paxil) 20 mg PO DAILY [facility] Last Admin: 08/12/20 09:38 Dose: 20 mg Documented by: Calcium Carbonate/ (Vitamin D3) 1 each PO DAILY [facility] Last Admin: 08/12/20 09:58 Dose: Not Given Documented by: Sodium Chloride (Saline Flush) 10 ml FLUSH ASDIRECTED PRN PRN Reason: Keep Vein Open Sodium Chloride (Saline Flush) 2.5 ml FLUSH ASDIRECTED PRN PRN Reason: Keep Vein Open Discontinued Medications Azithromycin (Zithromax) 500 mg PO Q24H [facility] Last Admin: 08/09/20 14:40 Dose: Not Given Documented by: Dexamethasone (Dexamethasone) 10 mg IVPUSH ONETIME ONE Stop: 08/07/20 20:37 Last Admin: 08/07/20 21:26 Dose: 10 mg Documented by: Remdesivir 200 mg/ Sodium (Chloride) 250 mls @ 250 mls/hr IV ONETIME ONE Stop: 08/07/20 20:37 Last Admin: 08/08/20 01:03 Dose: 250 mls/hr Documented by: Sodium Chloride (Normal Saline) 2,000 mls @ 2,000 mls/hr IV BOLUS ONE; Protocol Stop: 08/07/20 21:36 Last Admin: 08/07/20 20:57 Dose: 2,000 mls/hr Documented by: Remdesivir 100 mg/ Sodium (Chloride) 100 mls @ 100 mls/hr IV Q24H [facility] Stop: 08/11/20 00:59 Last Admin: 08/08/20 05:01 Dose: Not Given Documented by: Remdesivir 100 mg/ Sodium (Chloride) 100 mls @ 100 mls/hr IV Q24H [facility] Stop: 08/10/20 01:59 Last Admin: 08/10/20 00:48 Dose: 100 mls/hr Documented by: Lactated Ringer's (Ringers, Lactated) 1,000 mls @ 999 mls/hr IV .BOLUS [facility] Stop: 08/10/20 18:41 Last Admin: 08/10/20 18:08 Dose: 999 mls/hr Documented by: Pantoprazole Sodium 40 mg/ (Sodium Chloride) 10 mls @ 300 mls/hr IV NOW ONE Stop: 08/11/20 15:52 Last Admin: 08/11/20 16:38 Dose: 300 mls/hr Documented by: Prochlorperazine Edisylate (Compazine) 10 mg IVPUSH ONETIME ONE Stop: 08/07/20 21:02 Last Admin: 08/07/20 21:27 Dose: 10 mg Documented by:
[2020-08-12] MEDS ORDERED: Magnesium Sulfate/Water 4 GM in Premix Bag 1 BAG IV ONE (12:54)
[2020-08-12 13:24] VITALS: BP 112/61; PULSE 77
== END 2020-08-12 17:45 | disposition home or self-care (01) | DRG 179 ==
LOC: MW.ED 20:01 → MW.MS 21:29
PROVIDERS: ADMIT Internal Medicine; ATTEND Internal Medicine
PROC: XW033E5 Introduction of Remdesivir Anti-infective into Peripheral Vein, Percutaneous Approach, New Technology Group 5 (ICD-10-PCS; principal; 2020-08-07)
PROC: 8E0ZXY6 Isolation (ICD-10-PCS; 2020-08-07)
DX: U07.1 COVID-19 (principal); R09.02 Hypoxemia; E03.9 Hypothyroidism, unspecified; I10 Essential (primary) hypertension; F32.9 Major depressive disorder, single episode, unspecified; I34.1 Nonrheumatic mitral (valve) prolapse; Z98.49 Cataract extraction status, unspecified eye; Z79.82 Long term (current) use of aspirin; Z79.899 Other long term (current) drug therapy; Z88.1 Allergy status to other antibiotic agents; Z79.890 Hormone replacement therapy; Z90.710 Acquired absence of both cervix and uterus; R53.1 Weakness; E05.90 Thyrotoxicosis, unspecified without thyrotoxic crisis or storm
CPT/HCPCS: 36415 ×2; 36600; 71045; 71046; 71275; 80053 ×2; 82803; 83605 ×2; 83735; 83880; 84484 ×2; 85025 ×2; 85379; 85610 ×2; 85730 ×2; 86140 ×2; 87040; 93005; 96361; 96374; 96375; 99285 ×2; A9270; J0780; J1100; J1885; J2405; J7030 ×2; Q9967; 80048; 81001; 84100; 97161-GP; 97530-GP; 99221; 99231; 99238; 99284; C9113; J1650; J3475; J7040; J7050; J7120; J8540